=== PATIENT | male | born 1965 | race Caucasian/White ===

== ENCOUNTER 2021-09-28 17:06 | Emergency (ER) | payer SELFPAY ==
--- NOTE | 2021-09-28 17:10 | CTR_ITS ---
PROCEDURE INFORMATION: Exam: CT Abdomen And Pelvis With Contrast Exam date and time: 09/28/2021 5:10 PM Age: 56 years old Clinical indication: Injury or trauma; Other: Open wound to left groin; Wound, open; Foreign body involvement not specified; Lower; Additional info: Open chainsaw injury to pelvis area TECHNIQUE: Imaging protocol: Computed tomography of the abdomen and pelvis with contrast. Radiation optimization: All CT scans at this facility use at least one of these dose optimization techniques: automated exposure control; mA and/or kV adjustment per patient size (includes targeted exams where dose is matched to clinical indication); or iterative reconstruction. Contrast material: OMNI 300; Contrast volume: 95 ml; Contrast route: INTRAVENOUS (IV); COMPARISON: No relevant prior studies available. RADIATION DOSE METRICS: Total DLP (mGy-cm): 2130.06 FINDINGS: Liver: Hepatic steatosis. Gallbladder and bile ducts: Cholelithiasis. Pancreas: Normal. No ductal dilation. Spleen: Normal. No splenomegaly. Adrenal glands: Normal. No mass. Kidneys and ureters: Normal. No hydronephrosis. Stomach and bowel: Unremarkable. No obstruction. No mucosal thickening. Appendix: No evidence of appendicitis. Intraperitoneal space: Unremarkable. No free air. No significant fluid collection. Vasculature: Unremarkable. No abdominal aortic aneurysm. Lymph nodes: Upper abdominal mesentery appears somewhat edematous with several subcentimeter prominent lymph nodes suggestive of a chronic inflammatory process such as sclerosing mesenteritis. Urinary bladder: Unremarkable as visualized. Reproductive: Unremarkable as visualized. Bones/joints: Unremarkable. No acute fracture. Soft tissues: Left inguinal open wound seen with some subcutaneous edema and subcutaneous air without focal fluid collection to indicate an abscess. CT/CT abdomen pelvis w con* [id number] IMPRESSION: 1. Left inguinal open wound seen with some subcutaneous edema and subcutaneous air without focal fluid collection to indicate an abscess. 2. Hepatic steatosis. 3. Cholelithiasis. 4. Upper abdominal mesentery appears somewhat edematous with several subcentimeter prominent lymph nodes suggestive of a chronic inflammatory process such as sclerosing mesenteritis. Radiation Dose CTDIVOL = (mGy): DLP = 2130.06 (mGy-cm)
[2021-09-28 17:12] VITALS: BP 163/99; PULSE 92; RESP 16; TEMP 36.7; O2SAT 99; BMI 31.6
--- NOTE | 2021-09-28 17:14 | W.ED.TRAUMA ---
HPI - Trauma General: Chief Complaint: Wound/Laceration Stated Complaint: CHAINSAW TO GROIN Time Seen by Provider: 09/28/21 17:13 History of Present Illness: HPI narrative: Mr. Nina is a 56-year-old gentleman without reported past medical history presents to the emergency department due to chainsaw injury. 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 He had the chainsaw kicked back and cut his groin. He had bleeding at that time however it is unclear if any of it was pulsatile, it sounds more like large volume venous bleeding which improved with direct pressure. He was driven to the emergency department. Apparently prior to arrival he called or someone called for him telling us that he was coming however he adamantly declined ambulance. Law enforcement dispatch was notified. Moderate intensity pain worse with palpation. No distal numbness or tingling. History is otherwise limited by acuity of condition/trauma. Review of Systems General: Reports: Other (Acuity of condition requiring emergent evaluation and management.) Physical Exam Narrative: EXAM NARRATIVE: GENERAL/CONSTITUTIONAL - well-appearing. Anxious Eyes - PERRL, no conjunctival injection ENMT - Atraumatic external nose and ears. NECK - supple. trachea midline CARDIOVASCULAR - regular rate and rhythm. Normal peripheral pulses. Normal central pulses. RESPIRATORY - clear to auscultation bilaterally. ABDOMEN/GI/ - nontender, nondistended. There is an acute traumatic injury present. Just superior to the left groin there is a large laceration/tissue defect primarily involving fatty layers. No active hemorrhage present. Small abrasion superior to laceration. The laceration is lateral to the penis however tracks inferiorly, scrotum appears intact. Left hemiscrotum is empty and within the wound bed there appears to be the left testicle. Cremasteric reflex results in elevation of this wound bed mass. Area covered with sterile dressing. MSK - Extremities without obvious deformity or tenderness to palpation SKIN - Warm, Dry NEURO - alert and appropriately oriented. strength and sensation intact. Moves all extremities equally. Course ED course: - Patient was seen and evaluated by me and Dr Fisher at bedside - Patient placed on cardiac monitors, IV access obtained - Initial evaluation notable for ABCs intact. Head to toe examination reveals isolated chainsaw injury to the left groin without active hemorrhage. Suspected inguinal canal injury. Distal CMS intact. - Analgesia, Tdap, antibiotics given. - No acute intervention regarding lab abnormalities at this time. CT without evidence of other intra abdominal injury. - Given that we do not have urology on-call or a trauma service patient requires transfer emergently. - Patient accepted to hospital in [place] for trauma neurology evaluation. - Initially planned for transport by air however the patient adamantly declined air transport due to cost. I explained the reason for recommendation of air transport and risks of delaying care by ground transport including infection, more complex surgical repairs, possible loss of testicle, or other unforeseen circumstances. I feel that the patient has capacity to make medical decisions at this time and declines air transport in favor of ground transport. Patient will be transported by EMS via ground. - Patient left emergency department with ground EMS and satisfactory condition. Vital Signs: Vital signs: Vital Signs Temperature 98.0 F 09/28/21 17:12 Pulse Rate 92 09/28/21 17:12 Respiratory Rate 16 09/28/21 17:52 Blood Pressure 163/99 09/28/21 17:12 Pulse Oximetry 964 H 09/28/21 17:52 MDM - Trauma Medical Records: Attestation: I reviewed the patient's medical records. Lab Data: Attestation: I reviewed the patient's lab results. Labs: Lab Results 09/28/21 09/28/21 17:15 17:15 WBC 5.7 10^3/uL 10^3/ uL (4.0-10.0) RBC 4.40 10^6/uL 10^6 /uL (4.1-5.3) Hgb 14.4 g/dL g/dL (11.7-16.6) Hct 42.1 % % (42.0-52.0) MCV 95.7 fl H fl (80-94) MCH 32.7 pg pg (28.0-34.0) MCHC 34.2 g/dL g/dL (30.0-36.0) RDW 12.4 % % (12.1-15.1) Plt Count 232 10^3/cmm 10^3 /cmm (130-400) MPV 9.1 fL fL (7.4-10.4) Neut % (Auto) 65.8 % % Lymph % (Auto) 24.5 % % [place] % (Auto) 7.0 % % Eos % (Auto) 1.9 % % Baso % (Auto) 0.5 % % Neut # (Auto) 3.76 10^3/uL 10^3 /uL (1.8-7.7) Lymph # (Auto) 1.4 10^3/uL 10^3/ uL (0.8-4.8) [place] # (Auto) 0.4 10^3/uL 10^3/ uL (0.2-0.9) Eos # (Auto) 0.1 10^3/uL 10^3/ uL (0.0-0.8) Baso # (Auto) 0.0 10^3/uL 10^3/ uL (0.0-0.1) Nucleated RBC % (a uto) 0 % % Nucleated RBCs # 0.0 /100WBC /100W BC Sodium 144 mmol/L mmol/L (136-145) Potassium 3.8 mmol/L mmol/L (3.5-5.1) Chloride 108 mmol/L H mmol /L (98-107) Carbon Dioxide 19 mmol/L L mmol/ L (22-29) Anion Gap 20.8 H (5-19) BUN 25 mg/dL H mg/dL (6-20) Creatinine 1.3 mg/dL H mg/dL (0.7-1.2) GFR Calculation 57.3 mL/min L mL/ min (90-130) Glucose 87 mg/dL mg/dL (65-115) Calculated Osmolal ity 302 mOsm/kg H mOs m/kg (285-295) Calcium 8.7 mg/dL mg/dL (8.5-10.5) Total Bilirubin 0.7 mg/dL mg/dL (0.15-1.2) AST 19 U/L U/L (0-40) ALT 18 U/L U/L (0-41) Alkaline Phosphata se 69 IU/L IU/L (40-130) Total Protein 7.3 g/dL g/dL (6.6-8.7) Albumin 4.4 g/dL g/dL (3.5-5.2) Globulin 2.9 g/dL g/dL (1.3-4.6) Ethyl Alcohol 152 mg/dL H mg/dL (0-10) EKG Data^: EKG 1: Attestation: I personally reviewed and interpreted this EKG as follows: EKG interpretation date: 09/28/21 EKG interpretation time: 17:55 Interpretation: Twelve-lead EKG shows a regular rhythm at a rate of 89. SC interval 204, QRS duration 108, QTc 425. Left axis deviation. Interpretation: Sinus rhythm. First-degree AV block. Abnormal EKG which is likely secondary to left anterior fascicular block however no comparison is available. I did not interpret EKG until after patient had left. No reported history of chest pain recently. I contacted receiving facility's emergency department, as part of trauma protocol he will have repeat EKG at that facility. Discharge Plan Discharge Patient Disposition: Transfer to ED Clinical Impression: Trauma, Contact with chainsaw as cause of accidental injury, Laceration of groin, Testicular injury, Alcohol intoxication Coding Level of Care Code ED Improvement Specialist for Lawrence Barraza
[2021-09-28 17:30] LABS: Basophils % 0.5 %; Eosinophils # 0.1 10^3/uL (0.0-0.8); Eosinophils % 1.9 %; Hematocrit 42.1 % (42.0-52.0); Hemoglobin 14.4 g/dL (11.7-16.6); Lymphocytes # 1.4 10^3/uL (0.8-4.8); Lymphocytes % 24.5 %; Mean Corpuscular HGB Conc 34.2 g/dL (30.0-36.0); Mean Corpuscular Hemoglobin 32.7 pg (28.0-34.0); Mean Corpuscular Volume 95.7 fl (80-94); Mean Platelet Volume 9.1 fL (7.4-10.4); Monocytes # 0.4 10^3/uL (0.2-0.9); Neutrophils # 3.76 10^3/uL (1.8-7.7); Neutrophils % 65.8 %; Nucleated Red Blood Cells % 0 %; Platelet Count 232 10^3/cmm (130-400); Red Cell Distribution Width 12.4 % (12.1-15.1); White Blood Count 5.7 10^3/uL (4.0-10.0)
[2021-09-28] MEDS: iohexol 300 mg/mL 100 mL Btl IV (17:33)
[2021-09-28 17:38] LABS: Alanine Aminotransferase 18 U/L (0-41); Albumin Level 4.4 g/dL (3.5-5.2); Alcohol Level 152 mg/dL (0-10); Alkaline Phosphatase 69 IU/L (40-130); Anion Gap 20.8 (5-19); Aspartate Amino Transferase 19 U/L (0-40); Blood Urea Nitrogen 25 mg/dL (6-20); Calcium 8.7 mg/dL (8.5-10.5); Carbon Dioxide 19 mmol/L (22-29); Chloride 108 mmol/L (98-107); Globulin 2.9 g/dL (1.3-4.6); Glomerular Filtration Rate 57.3 mL/min (90-130); Glucose 87 mg/dL (65-115); Osmolality Calculated 302 mOsm/kg (285-295); Potassium 3.8 mmol/L (3.5-5.1); Sodium 144 mmol/L (136-145); Total Bilirubin 0.7 mg/dL (0.15-1.2); Total Protein 7.3 g/dL (6.6-8.7)
[2021-09-28] MEDS: ceFAZolin 1,000 MG in sodium chloride 0.9% (plus) 50 ML 100 MG IV (17:50)
[2021-09-28 17:52] VITALS: RESP 16; O2SAT 964
[2021-09-28] MEDS: fentaNYL 50 mcg/mL INJ 2mL 100 MCG IVP (17:52)
[2021-09-28] MEDS: tetanus-dipt-pertussis 0.5 mL SDV IM (17:54)
[2021-09-28] MEDS: sodium chloride 0.9% 1,000 ML 999 ML IV (17:56)
--- NOTE | 2021-09-28 18:21 | PC.NURSE ---
Pt arrvied via POV from home with a friend and sister. Pt states he was out cutting wood with a chainsaw when the chainsaw kicked back and the blade caught him in the left groin area, causing a deep laceration approximately 2.5inch x 5 inch. Bleeding controlled on arrival by pt and family. Pt A/O x4, vs taken. Pt brought to room from EMS bay. Pt placed on monitor, pt states he has very little pain at this time, pt appears to be diaphoretic once in room, states the adrenaline is wearing off .
== END 2021-09-28 18:40 ==
PROVIDERS: Emergency Medicine; Emergency Provider Emergency Medicine
DX: S31.114A Laceration without foreign body of abdominal wall, left lower quadrant without penetration into peritoneal cavity, initial encounter (principal); S39.94XA Unspecified injury of external genitals, initial encounter; F10.129 Alcohol abuse with intoxication, unspecified; Y90.6 Blood alcohol level of 120-199 mg/100 ml; W29.3XXA Contact with powered garden and outdoor hand tools and machinery, initial encounter; Z23 Encounter for immunization
CPT/HCPCS: 74177; 80053; 80307; 85025; 90471; 90715; 96365; 96375; 99284; J0690; J3010; J7030; Q9967

== ENCOUNTER 2023-10-14 18:37 | Inpatient (IN) | payer SELFPAY ==
[2023-10-14 18:44] VITALS: BP 221/125; PULSE 97; RESP 18; TEMP 36.7; O2SAT 97; BMI 34.3
--- NOTE | 2023-10-14 18:50 | XRR_ITS ---
PROCEDURE INFORMATION: Exam: XR Chest Exam date and time: 10/14/2023 6:57 PM Age: 58 years old Clinical indication: Pain; Chest pressure; Additional info: Cp TECHNIQUE: Imaging protocol: Radiologic exam of the chest. Views: 1 view. COMPARISON: CT abdomen pelvis w con* [id number] 09/28/2021 5:30 PM FINDINGS: Lungs: Unremarkable. No consolidation. Pleural spaces: Small right pleural effusion. Heart/Mediastinum: Cardiomegaly. Bones/joints: Unremarkable. XR/XR chest 1V portable [id number] IMPRESSION: 1. Small right pleural effusion. 2. Cardiomegaly.
--- NOTE | 2023-10-14 18:50 | ECG_ITS ---
[facility] Test Date: 2023-10-14 Pat Name: Donnie Nina Department: Room: Gender: Male Conductor Sleeping Car: : 1965 Requested By: Gigi Gibbs Order Number: [id number] Reading MD: Benny Pabon M.D. Measurements Intervals [place] Rate: 90 P: 37 GA: 213 QRS: -68 QRSD: 118 T: 116 QT: 386 QTc: 474 Interpretive Statements SINUS RHYTHM WITH FIRST DEGREE AV BLOCK INCOMPLETE RIGHT BUNDLE BRANCH BLOCK [90+ ms QRS DURATION, TERMINAL R IN V1/V2, 40+ ms S IN I/aVL/V4/V5/V6] LEFT ANTERIOR FASCICULAR BLOCK [QRS AXIS <= -45, QR IN I, RS IN II] SEPTAL MYOCARDIAL INFARCTION , PROBABLY OLD [40+ ms Q WAVE IN V1/V2] LATERAL MYOCARDIAL INFARCTION No previous ECG available for comparison Electronically Signed On 10-15-2023 14:38:18 MECHANIC'S ASSISTANT by Benny Pabon M.D. [id number]
[2023-10-14] MEDS: hyDRALAzine 20 mg/mL INJ 1 mL 10 MG IVP (19:29)
[2023-10-14] MEDS: aspirin 81 mg Chew Tablet 324 MG PO (19:29)
[2023-10-14] MEDS: amlodipine 5 mg Tablet PO (19:29)
[2023-10-14 19:37] LABS: Basophils # 0.1 10^3/uL (0.0-0.1); Basophils % 0.7 %; Eosinophils # 0.2 10^3/uL (0.0-0.8); Eosinophils % 2.2 %; Hematocrit 38.7 % (37-53); Lymphocytes # 0.9 10^3/uL (0.8-4.8); Lymphocytes % 12.1 %; Mean Corpuscular HGB Conc 33.1 g/dL (30-55); Mean Corpuscular Hemoglobin 30.5 pg (27-33); Mean Corpuscular Volume 92.4 fl (82-101); Mean Platelet Volume 8.5 fL (7.4-10.4); Monocytes # 0.4 10^3/uL (0.2-0.9); Monocytes % 4.6 %; Nucleated Red Blood Cells % 0 %; Platelet Count 269 10^3/cmm (157-399); Red Blood Count 4.19 10^6/uL (3.85-5.65); Red Cell Distribution Width 12.5 % (12.1-15.1); White Blood Count 7.62 10^3/uL (3.29-11.43)
[2023-10-14 19:50] LABS: INR 1.06 (0.8-1.2)
[2023-10-14 19:51] LABS: Partial Thromboplastin Time 31.3 SECONDS (23.9-36.7)
[2023-10-14 19:57] LABS: Troponin(5th) Baseline 45 ng/L (0-15)
--- NOTE | 2023-10-14 20:02 | ED_ITS ---
HPI - SOB/Dyspnea 2 General: Chief Complaint: Shortness of Breath/Dyspnea Stated Complaint: high bp,sob Time Seen by Provider: 10/14/23 18:59 History of Present Illness: HPI Narrative: 58-year-old male presents emerged part w ith complaints of feeling like he is more short of breath on exertion. He states he also has uncontrolled hypertension and states that he used to take antihypertensive medication but switched his primary care provider and has not taken them for a long time. He also complains of generalized vague headache. He states he did do methamphetamine earlier today he denies chest pain at present. He denies dizziness or changes in vision. He states he does drink alcohol but does not smoke cigarettes. He states intermittently for the previous 2 months he has had significant swelling to his lower extremities and he does have trace bilateral lower extremity edema today. Associated symptoms: Deny chest pain or palpitations Review of Systems 2 General: Reports: 10 or more systems reviewed and unremarkable except in HPI and below Card: Reports: edema; Denies: chest pain, palpitations or irregular heart rhythm Resp: Reports: dyspnea Psych: Reports: other (Methamphetamine abuse) Physical Exam 2 Narrative: EXAM NARRATIVE: Constitutional: the patient appears well nourished and with normal development. Vital signs reviewed as documented. HENMT: Normocephalic, atraumatic. Extermal ears with normal appearance without drainage. Nose without drainage, normal appearance. Mucus membranes moist. Neck is supple, No jugular venous distension, trachea is midline, no appreciable carotid bruits. No lymphadenopathy. No meningeal signs. Flexion, extension and lateral rotation is without pain. Eyes: Pupils are equal, round, reactive to light and accommodation. No scleral icterus. Extra-ocular movement are intact. Thorax is symmetrical and with equal rise and fall with respirations. Resp: Lungs are clear to auscultation. No wheezes, rales, crackles or ronchi at present. Cardio: Sinus tachycardia.. Positive S1, S2. No appreciable murmurs, rubs or gallops. Trace bilateral lower extremity edema GI: Abdominal exam reveals normal bowel sounds to all quadrants. No organomegaly. No obvious palpable masses noted. No hepatomegally appreciated. Soft, nontender to palpation. Extremity: Extremities are with trace bilateral lower extremity edema and both femoral and pedal pulses are 2+ and equal bilaterally. Moves all extremities well, sensation in all extremities. Neuro: Alert and oriented x4, person, place, time and situation. Cranial nerves II through XII are grossly intact, there is no focal neurological deficits that I can appreciate at present. Motor strength in the upper and lower extremities are equal and bilateral 5/5. Psych: Cooperative, calm, normal thought process, appropriate judgment. Skin: No lesions, rashes. No gross abnormalities noted. Back: Symmetrical, no obvious deformity, No CVA tenderness Course 2 Vital Signs: Vital signs: Vital Signs Temperature 98.0 F 10/14/23 18:44 Pulse Rate 96 10/14/23 21:32 Respiratory Rate 16 10/14/23 21:32 Blood Pressure 176/90 10/14/23 21:32 Pulse Oximetry 97 10/14/23 21:32 Oxygen Delivery Me thod Room Air 10/14/23 18:44 MDM - SOB/Dyspnea Medical Decision Making Physical exam completed and documented, I will obtain serial cardiac enzymes, serial twelve-lead EKGs, chest x-ray, CBC, CMP, urinalysis, B-type natriuretic peptide, PT/PTT/INR, and a chest x-ray. I will provide a nitroglycerin drip for hypertensive emergency and reevaluate accordingly. I have reviewed any pervious and pertinent medical records for assist in obtaining beneficial medical information to improved the care and treatment of the patient. I will consult the hospital physician for admission for additional evaluation treatment and care given the patient's hypertensive emergency and acute renal injury. Medical Records I reviewed the patient's medical records. Lab Data I reviewed the patient's lab results. 10/14/23 19:34 10/14/23 19:34 Labs/Radiology: Radiology Impressions Chest X-Ray 10/14/23 18:50 IMPRESSION: 1. Small right pleural effusion. 2. Cardiomegaly. Laboratory Results WBC 7.62 10^3/uL (3.29-11.43) 10/14/23 19:34 RBC 4.19 10^6/uL (3.85-5.65) 10/14/23 19:34 Hgb 12.80 g/dL (11.27-16.99) 10/14/23 19:34 Hct 38.7 % (37-53) 10/14/23 19:34 MCV 92.4 fl (82-101) 10/14/23 19:34 MCH 30.5 pg (27-33) 10/14/23 19:34 MCHC 33.1 g/dL (30-55) 10/14/23 19:34 RDW 12.5 % (12.1-15.1) 10/14/23 19:34 Plt Count 269 10^3/cmm (157-399) 10/14/23 19:34 MPV 8.5 fL (7.4-10.4) 10/14/23 19:34 Neut % (Auto) 80.0 % 10/14/23 19:34 Lymph % (Auto) 12.1 % 10/14/23 19:34 [place] % (Auto) 4.6 % 10/14/23 19:34 Eos % (Auto) 2.2 % 10/14/23 19:34 Baso % (Auto) 0.7 % 10/14/23 19:34 Neut # (Auto) 6.10 10^3/uL (1.8-7.7) 10/14/23 19:34 Lymph # (Auto) 0.9 10^3/uL (0.8-4.8) 10/14/23 19:34 [place] # (Auto) 0.4 10^3/uL (0.2-0.9) 10/14/23 19:34 Eos # (Auto) 0.2 10^3/uL (0.0-0.8) 10/14/23 19:34 Baso # (Auto) 0.1 10^3/uL (0.0-0.1) 10/14/23 19:34 Nucleated RBC % (auto) 0 % 10/14/23 19:34 Nucleated RBCs # 0.0 /100WBC 10/14/23 19:34 PT 14.10 SECONDS (12.1-14.9) 10/14/23 19:34 INR 1.06 (0.8-1.2) 10/14/23 19:34 APTT 31.3 SECONDS (23.9-36.7) 10/14/23 19:34 Sodium 136 mmol/L (136-145) 10/14/23 19:34 Potassium 4.0 mmol/L (3.5-5.1) 10/14/23 19:34 Chloride 102 mmol/L (98-107) 10/14/23 19:34 Carbon Dioxide 21 mmol/L (22-29) L 10/14/23 19:34 Anion Gap 17.0 (5-19) 10/14/23 19:34 BUN 23 mg/dL (6-20) H 10/14/23 19:34 Creatinine 2.0 mg/dL (0.7-1.2) H 10/14/23 19:34 GFR Calculation 34.6 mL/min (90-130) L 10/14/23 19:34 Glucose 98 mg/dL (65-115) 10/14/23 19:34 Calculated Osmolality 286 mOsm/kg (285-295) 10/14/23 19:34 Calcium 8.8 mg/dL (8.5-10.5) 10/14/23 19:34 Total Bilirubin 1.1 mg/dL (0.15-1.2) 10/14/23 19:34 AST 30 U/L (0-40) 10/14/23 19:34 ALT 32 U/L (0-41) 10/14/23 19:34 Alkaline Phosphatase 117 U/L (40-130) 10/14/23 19:34 Troponin T Baseline 45 ng/L (0-15) H 10/14/23 19:34 Troponin T 120 Minute 45.57 ng/L (0-15) H 10/14/23 21:38 Delta Troponin T 0.57 ABS# (0-10) 10/14/23 21:38 NT-Pro-B Natriuret Pep 1951 pg/mL (0-125) H 10/14/23 19:34 Total Protein 7.1 g/dL (6.6-8.7) 10/14/23 19:34 Albumin 4.0 g/dL (3.5-5.2) 10/14/23 19:34 Globulin 3.1 g/dL (1.3-4.6) 10/14/23 19:34 Urine Opiates Screen Negative ng/mL (Negative) 10/14/23 21:38 Ur Barbiturates Screen Negative ng/mL (Negative) 10/14/23 21:38 Ur Phencyclidine Scrn Negative ng/mL (Negative) 10/14/23 21:38 Ur Amphetamines Screen Positive ng/mL (Negative) H 10/14/23 21:38 U Benzodiazepines Scrn Negative ng/mL (Negative) 10/14/23 21:38 Urine Cocaine Screen Negative ng/mL (Negative) 10/14/23 21:38 U Marijuana (THC) Screen Negative ng/mL (Negative) 10/14/23 21:38 All radiology interpretation(s) finalized by discharge EKG Data EKG 1: Interpretation: Twelve-lead EKG obtained at 1856 and reviewed at 1900 demonstrates sinus rhythm with first-degree AV block, incomplete right bundle branch block and a left anterior fascicular block. I am concerned for subendocardial injury and will obtain cardiac enzymes. The ventricular rate was 90 bpm, NE interval was prolonged at 213 QRS duration is 118 QT 386 and QTc 434. Critical Care Time 2 Critical Care Time: Critical Care Time: Yes Total Critical Care Time: 65 Attestation: This case had a high probability of a clinically significant, sudden, or life threatening deterioration of this patient's condition which required my full and direct attention, intervention and personal management. Discharge Plan Discharge Admit Provider: Jhonny Inman Condition: Stable Prescriptions: No Action No Known Home Medications Coding Level of Care Code ED Radiation Control Specialist for Dimasg Madi
[2023-10-14 20:07] LABS: Alanine Aminotransferase 32 U/L (0-41); Alkaline Phosphatase 117 U/L (40-130); Aspartate Amino Transferase 30 U/L (0-40); Blood Urea Nitrogen 23 mg/dL (6-20); Calcium 8.8 mg/dL (8.5-10.5); Carbon Dioxide 21 mmol/L (22-29); Chloride 102 mmol/L (98-107); Globulin 3.1 g/dL (1.3-4.6); Glomerular Filtration Rate 34.6 mL/min (90-130); Glucose 98 mg/dL (65-115); NT Pro B Type Natriuretic Pept 1951 pg/mL (0-125); Osmolality Calculated 286 mOsm/kg (285-295); Sodium 136 mmol/L (136-145); Total Bilirubin 1.1 mg/dL (0.15-1.2); Total Protein 7.1 g/dL (6.6-8.7)
[2023-10-14] MEDS: hyDRALAzine 20 mg/mL INJ 1 mL IVP (20:24)
[2023-10-14 21:23] VITALS: BP 183/90; PULSE 97; RESP 16; O2SAT 91
[2023-10-14] MEDS: FUROsemide 10 mg/mL SDV 4mL 40 MG IVP (21:28)
[2023-10-14 21:32] VITALS: BP 176/90; PULSE 96; RESP 16; O2SAT 97
[2023-10-14 21:59] LABS: Amphetamines Screen Urine Positive (Negative); Barbiturates Screen Urine Negative (Negative); Benzodiazepines Screen Urine Negative (Negative); Cocaine Screen Urine Negative (Negative); Opiate Screen Urine Negative (Negative); PCP Screen Urine Negative (Negative); THC Screen Urine Negative (Negative)
[2023-10-14 22:05] LABS: Troponin 5 2HR 45.57 ng/L (0-15); Troponin 5 2HR Delta 0.57 ABS# (0-10)
--- NOTE | 2023-10-14 22:46 | P.HP_ITS ---
Providers/Chief Complaint 2 Chief Complaint: high bp,sob History of Present Illness Donnie Nina is a 58 year old male with no significant past medical history, active smoker, uses methamphetamine, drinks alcohol heavily, presented with chief overnight shortness of breath. Patient stating that he woke up with shortness of breath and then he smoked methamphetamine which aggravated his symptoms that prompted his visit to the ER. He did not experience any chest pain until his blood pressure and heart rate was high in the ER which improved when blood pressure came down. At the time of my evaluation he is not complaining active chest pain he is on nitroglycerin drip blood pressure 190/90 mmHg, no active chest pain or shortness of breath, patient has received Lasix, amlodipine, aspirin, hydralazine, currently on lowest dose of nitroglycerin, I requested echo, TSH, Patient does not have any history of coronary disease diabetes, hypothyroidism, he does not take any medications. Patient is stating that his 1 bottle of vodka over the last 3 days Review of Systems 2 Const: Denies: fever(s) Eyes: Denies: change in vision ENMT: Denies: throat pain Card: Denies: chest pain Resp: Reports: dyspnea GI: Denies: abdominal pain : Denies: flank pain Musc: Denies: neck pain Medications/Allergies Home Medications Medication Instructions Recorded Confirmed Last Taken Type No Known Home Medications 10/14/23 10/14/23 Unknown History Allergies Allergy/AdvReac Type Severity Reaction Status Date / Time No Known Allergies Allergy Verified 10/14/23 18:43 PFSH Acute 2 PFSH: Medical History (Updated 10/14/23 @ 23:34 by Jhonny Inman MD) No pertinent past medical history Surgical History (Updated 10/14/23 @ 23:34 by Jhonny Inman MD) No pertinent past surgical history Vitals/I&O/Wt Last Vital Signs Temp 98.0 F 10/14/23 18:44 Pulse 96 10/14/23 21:32 Resp 16 10/14/23 21:32 BP 176/90 10/14/23 21:32 Pulse Ox 97 10/14/23 21:32 O2 Del Method Room Air 10/14/23 18:44 Weight last 48 hrs Weight 114.759 kg Physical Exam 2 Narrative: No active signs of heart failure Awake and alert GCS 15 Currently on room air Hypertensive S1, S2 Nonfocal neuroexam Pleasant and cooperative Dry skin Data 10/14/23 19:34 10/14/23 19:34 A&P Assessment and plan (1) Hypertensive urgency: (2) Methamphetamine abuse: Plan Polysubstance abuse Methamphetamine positive Hypertensive urgency Start nitroglycerin drip I have asked the nurse to monitor blood pressure every 30 minutes and turn off nitroglycerin once his blood pressure systolic is below 140 mmHg which should not be decreasing MAP more than 25% in next 6 to 8 hours Check TSH, Patient is endorsing daily use of alcohol, last drink was a few hours before his arrival in the ER, I will put him on CIWA protocol New onset congestive heart failure with high BNP we will request echo he has received Lasix in the ER Acute on chronic kidney disease likely cardiorenal Anticipate improvement with Lasix Full code Cardiac diet DVT prophylaxis added Attestations 2 Medical Necessity Statement*: More than 2 midnights anticipated for management evaluation of new onset heart failure, hypertensive urgency, polysubstance abuse Diagnoses Hypertensive urgency I16.0 Methamphetamine abuse F15.10
--- NOTE | 2023-10-14 23:21 | ECG_ITS ---
[facility] Test Date: 2023-10-14 Pat Name: Donnie Nina Department: Room: EDIP Gender: Male Marriage Counselor: : 1965 Requested By: Gigi Gibbs Order Number: [id number] Ying MD: Benny Pabon M.D. Measurements Intervals [place] Rate: 94 P: 59 FL: 203 QRS: -61 QRSD: 114 T: 96 QT: 385 QTc: 482 Interpretive Statements SINUS RHYTHM POSSIBLE LEFT ATRIAL ENLARGEMENT [-0.1mV P-WAVE IN V1/V2] INCOMPLETE RIGHT BUNDLE BRANCH BLOCK [90+ ms QRS DURATION, TERMINAL R IN V1/V2, 40+ ms S IN I/aVL/V4/V5/V6] LEFT ANTERIOR FASCICULAR BLOCK [QRS AXIS <= -45, QR IN I, RS IN II] SEPTAL MYOCARDIAL INFARCTION , OF INDETERMINATE AGE [40+ ms Q WAVE IN V1/V2] MODERATE T-WAVE ABNORMALITY, CONSIDER LATERAL ISCHEMIA [-0.1+ mV T-WAVE IN I/aVL/V5/V6] Compared to ECG 10/14/2023 18:56:32 T-wave abnormality now present Possible ischemia now present First degree AV block no longer present Myocardial infarct finding still present Electronically Signed On 10-15-2023 14:41:13 EASEMENT MAN by Benny Pabon M.D. [id number]
[2023-10-14 23:30] VITALS: BP 190/95; PULSE 95; RESP 16; O2SAT 97
[2023-10-14] MEDS: nitroglycerin drip 50 MG/250 ML PREMIX IV (23:30)
[2023-10-15] VITALS (11 sets, daily range): BP systolic 141–181; BP diastolic 65–108; PULSE 88–107; RESP 16–19; TEMP 36.8–37.3; O2SAT 76–97; BMI 31.6
[2023-10-15 00:06] LABS: Thyroid Stimulating Hormone 3.96 uIU/mL (0.27-4.20)
--- NOTE | 2023-10-15 00:53 | ECG_ITS ---
[facility] Test Date: 2023-10-15 Pat Name: Donnie Nina Department: Room: ED Gender: Male Calender Wind Up Tender: : 1965 Requested By: Gigi Gibbs Order Number: [id number] Ying MD: Benny Pabon M.D. Measurements Intervals [place] Rate: 93 P: 59 [place]: 198 QRS: -66 QRSD: 112 T: 93 QT: 392 QTc: 489 Interpretive Statements SINUS RHYTHM POSSIBLE LEFT ATRIAL ENLARGEMENT [-0.1mV P-WAVE IN V1/V2] INCOMPLETE RIGHT BUNDLE BRANCH BLOCK [90+ ms QRS DURATION, TERMINAL R IN V1/V2, 40+ ms S IN I/aVL/V4/V5/V6] LEFT ANTERIOR FASCICULAR BLOCK [QRS AXIS <= -45, QR IN I, RS IN II] ABNORMAL QRS-T ANGLE [QRS-T AXIS DIFFERENCE > 60] Compared to ECG 10/14/2023 23:21:31 Myocardial infarct finding no longer present T-wave abnormality no longer present Possible ischemia no longer present Electronically Signed On 10-15-2023 14:41:44 MIRROR MACHINE FEEDER by Benny Pabon M.D. [id number]
[2023-10-15 01:05] LABS: Troponin 5 6HR 46.69 ng/L (0-15); Troponin 5 6HR Delta 1.69 ng/L (0-12)
[2023-10-15] MEDS: heparin 5,000 unit/mL INJ 1 mL 5000 UNIT SUBCUT ×3 (01:19→23:19)
[2023-10-15 03:53] LABS: Basophils % 0.6 %; Eosinophils # 0.2 10^3/uL (0.0-0.8); Eosinophils % 2.1 %; Lymphocytes # 0.7 10^3/uL (0.8-4.8); Lymphocytes % 9.1 %; Mean Corpuscular HGB Conc 33.9 g/dL (30-55); Mean Corpuscular Hemoglobin 30.8 pg (27-33); Mean Corpuscular Volume 90.7 fl (82-101); Mean Platelet Volume 8.5 fL (7.4-10.4); Monocytes # 0.4 10^3/uL (0.2-0.9); Monocytes % 5.7 %; Neutrophils # 5.89 10^3/uL (1.8-7.7); Neutrophils % 82.2 %; Nucleated Red Blood Cells % 0 %; Platelet Count 274 10^3/cmm (157-399); Red Blood Count 4.52 10^6/uL (3.85-5.65); Red Cell Distribution Width 12.6 % (12.1-15.1); White Blood Count 7.16 10^3/uL (3.29-11.43)
[2023-10-15 04:09] LABS: Anion Gap 16.1 (5-19); Blood Urea Nitrogen 22 mg/dL (6-20); C Reactive Protein 46.7 mg/L (0.0-4.9); Calcium 9.5 mg/dL (8.5-10.5); Carbon Dioxide 24 mmol/L (22-29); Chloride 99 mmol/L (98-107); Glomerular Filtration Rate 34.6 mL/min (90-130); Glucose 104 mg/dL (65-115); Magnesium 2.2 mg/dL (1.7-2.3); Osmolality Calculated 284 mOsm/kg (285-295); Potassium 4.1 mmol/L (3.5-5.1); Sodium 135 mmol/L (136-145)
--- NOTE | 2023-10-15 07:22 | PC.PHAR ---
pt states he takes no prescription medication or otc meds-no med show up on ext med history
--- NOTE | 2023-10-15 09:04 | PC.CHAP ---
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 [] Patient/Family/Request visit [] Outpatient visit [] Follow-up visit [] Physician referral [] Code/Alert [] Routine visit [] Staff referral [] Actively dying [] Patient sleeping [] Family support [] [] Out of room [] Palliative care [] [x] Receiving care in room [] Pre-surgical visit [] Trauma [] Long length of stay [] ICU visit [] Other: Relational/Emotional Strength [] Patient feels connected with others/family/visitors/staff [] Distress [] Loneliness/isolation [] Abandonment Spirituality of Patient [] Person of [place]ette [] Attends Mormonism of their [place] [] Believes in Prayer [] Reads Bible or Buddhism materials [] There are Spiritual issues to be addressed 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 [] Prayer [] Active listening [] Non-anxious presence [] Spiritual/emotional support [] Crisis/trauma care [] Spiritual counseling [] Bereavement support [] Provided bereavement packet [] Provided Bible/devotional materials [] Provided toy/stuffed animal, coloring book to patient or family member [] Provided Communion [] Anointing/[place] [] Salvation [] Completed spiritual assessment [] Other: Impact on Illness or Injury [] Angry [] Fearful [] Anxious [] Often cries [] Exhaustion [] Unable to work [] Unable to attend anabaptist [] Unable to walk/stand [] Unable to read [] Unable to drive [] Unable to eat/drink [] Unable to sleep [] Unable to be with family [] Patient intubated [] Other: Summary Time spent with patient
[2023-10-15] MEDS: multivitamin therapeutic Tablet 1 TAB PO (09:12)
[2023-10-15] MEDS: amlodipine 10 mg Tablet PO (09:12)
[2023-10-15] MEDS: lisinopril 10 mg Tablet PO (09:12)
[2023-10-15] MEDS: FUROsemide 40 mg Tablet PO (09:12)
[2023-10-15] MEDS: thiamine 100 mg Tablet PO (09:12)
[2023-10-15] MEDS: metoprolol tartrate 25 mg Tablet PO (09:13)
[2023-10-15] MEDS: folic acid 1 mg Tablet PO (09:13)
[2023-10-15] MEDS: potassium chloride ER 20 mEq Tablet PO (09:15)
[2023-10-15] MEDS: acetaminophen 500 mg Tablet PO (12:29)
--- NOTE | 2023-10-15 13:06 | P.PN_ITS ---
Subjective 2 Subjective: Seen this morning. Blood pressure still elevated and patient is still on nitro drip. He states he used to be on blood pressure medication in the past however stopped taking it. He uses meth daily however the reason being his bilateral knee pain. 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 He states he does not have a primary care physician either. 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 He does not mind the drug screen daily but it seems it is a hassle to him. He is willing to go back on blood pressure medication and willing to set up with her primary care physician and get a referral to pain clinic to try to get a fresh start. Vitals/I&O/Wt Last Vital Signs Temp 98.0 F 10/14/23 18:44 Pulse 91 10/15/23 08:28 Resp 18 10/15/23 08:28 BP 170/96 10/15/23 07:42 Pulse Ox 97 10/15/23 08:28 O2 Del Method Room Air 10/15/23 08:28 10/14/23 10/15/23 10/15/23 22:59 06:59 14:59 Intake Total 39.575 / 39.575 240 / 240 Balance 39.575 / 39.575 240 / 240 Weight last 48 hrs Weight 117.934 kg Weight 114.759 kg Physical Exam 2 Narrative: No active signs of heart failure Awake and alert GCS 15 Currently on room air Hypertensive S1, S2 Nonfocal neuroexam Pleasant and cooperative Dry skin Data 10/15/23 03:50 10/15/23 03:50 A&P Assessment and plan (1) Hypertensive urgency: (2) Methamphetamine abuse: Plan Polysubstance abuse Methamphetamine positive Hypertensive urgency ?Patient to continue on nitroglycerin drip for now. Once blood pressure systolic less than 160 we will stop the drip. Continue amlodipine 10 mg daily ? Start hydralazine 50 3 times daily - TSH 3.96. Patient is endorsing daily use of alcohol, last drink was a few hours before his arrival in the ER, I will put him on CIWA protocol New onset congestive heart failure with high BNP we will request echo he has received Lasix in the ER. ? Echo is within normal limits. Reviewed results. Most likely this was flash pulmonary edema due to hypertensive urgency. Acute on chronic kidney disease likely cardiorenal Anticipate improvement with Lasix. Creatinine is 2.0. This may be his new baseline from prior. Full code Cardiac diet DVT prophylaxis added Referral for pain clinic and PCP at discharge. Attestations 2 Medical Necessity Statement*: Will require closer monitoring in cardiac stepdown unit today since he is on a nitroglycerin drip. Discharge home once blood pressure better controlled. Diagnoses Hypertensive urgency I16.0 Methamphetamine abuse F15.10
[2023-10-15] MEDS: hyDRALAzine 25 mg Tablet PO ×2 (14:20→20:55)
--- NOTE | 2023-10-15 17:07 | PC.NURSE ---
have been titrating ntg drip down using manual bp cuff,as nihan Kodon does not correlate. bp 156/98;154/92;156/90;150/92
--- NOTE | 2023-10-15 23:32 | USCV_ITS ---
Donnie Nina Age: 58 Gender: M : 1965 Exam Date: 10/15/2023 00:10 Ordering Phys: Jhonny Inman MD Technologist: ZACK [place]am [place] [facility] [place] [facility] [place] Indication: SOB FERNANDEZ Methamphetamine Abuser BP: 190 / 95 HR: 104 Rhythm: Sinus Technical Quality: Suboptimal MEASUREMENTS (Male / Female) Normal Values 2D ECHO LV Diastolic Diameter PLAX 3.2 cm 4.2 - 5.9 / 3.9 - 5.3 cm LV Systolic Diameter PLAX 2.1 cm IVS Diastolic Thickness 1.8 cm 0.6 - 1.0 / 0.6 - 0.9 cm IVS Systolic Thickness 2.5 cm LVPW Diastolic Thickness 1.9 cm 0.6 - 1.0 / 0.6 - 0.9 cm LVPW Systolic Thickness 2.2 cm LVOT Diameter 1.8 cm LV Ejection Fraction 2D Teich 63.7 % LV Ejection Fraction MOD 2C 65.0 % LV Ejection Fraction 2C AL 69.6 % LA Diameter 5.3 cm LA Width 4.2 cm LA Height 7.1 cm RA Width 3.6 cm RA Height 4.7 cm Aorta at Sinotubular Diameter 3.8 cm IVC Diameter 1.8 cm M-MODE Aortic Annulus Diameter 3.6 cm LA Ao Ratio MM 1.4 MV E Point Septal Separation 0.3 cm DOPPLER AV Peak Velocity 177.0 cm/s LVOT Peak Velocity 172.0 cm/s AV Area Cont Eq vti 2.2 cm squared AV Area Cont Eq pk 2.5 cm squared MV Area PHT 4.2 cm squared Mitral E to A Ratio 1.5 MV E' Velocity 78.0 cm/s Mitral E to MV E' Ratio 34.4 Mitral E to LV E' Lateral Ratio 33.6 Mitral E to LV E' Septal Ratio 35.2 TR Peak Velocity 274.0 cm/s TR Peak Gradient 30.0 mmHg TV Peak E Velocity 60.0 cm/s Right Atrial Pressure 5.0 mmHg Pulmonary Artery Systolic Pressu 35.0 mmHg PV Peak Velocity 119.0 cm/s RV Acceleration Time 0.1 s RV Ejection Time 0.4 s RV AcT/ET 0.2 FINDINGS Left Ventricle Normal left ventricular size, systolic function and wall thickness, with no regional wall motion abnormalities. Normal diastolic function. Left ventricular ejection fraction is estimated at 65%. Right Ventricle Normal right ventricular size and systolic function. Normal right ventricular systolic pressure. Right Atrium The right atrium is normal in size. Left Atrium The left atrium is normal in size. Mitral Valve Structurally normal mitral valve. Mild mitral valve regurgitation. Aortic Valve Structurally normal aortic valve without significant sclerosis or stenosis. There is no aortic regurgitation. Tricuspid Valve Pulmonic Valve Pulmonic valve not well visualized. Pericardium Normal pericardium without effusion. Aorta Normal ascending aorta dimension. IVC The inferior vena cava appears normal. CONCLUSIONS Normal left ventricular size, systolic function and wall thickness, with no regional wall motion abnormalities. Normal diastolic function. Left ventricular ejection fraction is estimated at 65%. Structurally normal mitral valve. Mild mitral valve regurgitation. There are no prior echocardiogram studies to compare. Dr. Benny Pabon MD (Electronically Signed) Final Date: 15 October 2023 09:06 S
[2023-10-16 03:18] VITALS: BP 148/96; PULSE 86; RESP 18; TEMP 36.6; O2SAT 94
[2023-10-16 04:36] LABS: Basophils % 0.5 %; Eosinophils # 0.1 10^3/uL (0.0-0.8); Eosinophils % 1.3 %; Hematocrit 44.6 % (37-53); Lymphocytes # 0.9 10^3/uL (0.8-4.8); Lymphocytes % 9.8 %; Mean Corpuscular HGB Conc 33.9 g/dL (30-55); Mean Corpuscular Hemoglobin 30.8 pg (27-33); Mean Platelet Volume 8.7 fL (7.4-10.4); Monocytes # 0.6 10^3/uL (0.2-0.9); Monocytes % 6.5 %; Neutrophils # 7.17 10^3/uL (1.8-7.7); Neutrophils % 81.3 %; Nucleated Red Blood Cells % 0 %; Platelet Count 313 10^3/cmm (157-399); Red Cell Distribution Width 12.7 % (12.1-15.1)
[2023-10-16 04:59] LABS: Anion Gap 16.5 (5-19); Blood Urea Nitrogen 26 mg/dL (6-20); Calcium 9.4 mg/dL (8.5-10.5); Carbon Dioxide 23 mmol/L (22-29); Chloride 95 mmol/L (98-107); Creatinine Clr Calc Pharmacy 54.4844; Glomerular Filtration Rate 32.7 mL/min (90-130); Glucose 101 mg/dL (65-115); Magnesium 2.3 mg/dL (1.7-2.3); Osmolality Calculated 275 mOsm/kg (285-295); Potassium 4.5 mmol/L (3.5-5.1); Sodium 130 mmol/L (136-145)
[2023-10-16 06:00] VITALS: PULSE 88
[2023-10-16 07:51] VITALS: BP 155/92; PULSE 83; RESP 20; TEMP 36.6; O2SAT 95
[2023-10-16 07:56] VITALS: PULSE 84; RESP 15; O2SAT 94
[2023-10-16] MEDS: FUROsemide 40 mg Tablet PO (09:02)
[2023-10-16] MEDS: hyDRALAzine 25 mg Tablet PO (09:03)
[2023-10-16] MEDS: thiamine 100 mg Tablet PO (09:03)
[2023-10-16] MEDS: amlodipine 10 mg Tablet PO (09:03)
[2023-10-16] MEDS: potassium chloride ER 20 mEq Tablet PO (09:03)
[2023-10-16] MEDS: multivitamin therapeutic Tablet 1 TAB PO (09:03)
[2023-10-16] MEDS: folic acid 1 mg Tablet PO (09:03)
[2023-10-16 12:00] VITALS: BP 130/90
--- NOTE | 2023-10-16 13:04 | PM.DCS ---
Discharge Providers Date of Admission: 10/14/23 22:48 Date of Discharge: October 16, 2023 Attending Provider at Admission: Jhonny Inman MD Attending Provider at Discharge: Summer Martínez MD Diagnoses at Discharge Discharge Diagnosis (1) Hypertensive urgency: Status: Resolved (2) Methamphetamine abuse: Status: Acute Reason for Visit Reason for Visit: high bp,sob Hospital Course Hospital Course Patient was admitted for hypertensive urgency. She required a nitroglycerin drip. Patient was placed on amlodipine 10 mg daily and hydralazine 30 3 times daily was started. He also remained on CIWA protocol during hospital stay. CALEB also present which is probably his new baseline at this point. Creatinine 2.0. Echo within normal is. Fasprin edema possibly due to hypertensive urgency. Patient counseled to refrain from methamphetamine use.. He says he takes it 2 to pain in his knees. He was interested in setting up with a pain management physician. Pain clinic referral given at discharge. Please see progress notes for further details. Physical Exam Narrative: No active signs of heart failure Awake and alert GCS 15 Currently on room air Hypertensive S1, S2 Nonfocal neuroexam Pleasant and cooperative Dry skin Discharge Data Studies Completed and Pending Completed Studies During Hospitalization Category Date Time Status XR chest 1V portable [id number] Stat Exams 10/14/23 18:50 Completed CV. echo complete* [id number] Routine Ultrasound 10/15/23 23:32 Completed Radiology Impressions Chest X-Ray 10/14/23 18:50 IMPRESSION: 1. Small right pleural effusion. 2. Cardiomegaly. Laboratory Results WBC 8.80 10^3/uL (3.29-11.43) 10/16/23 04:14 RBC 4.90 10^6/uL (3.85-5.65) 10/16/23 04:14 Hgb 15.10 g/dL (11.27-16.99) 10/16/23 04:14 Hct 44.6 % (37-53) 10/16/23 04:14 MCV 91.0 fl (82-101) 10/16/23 04:14 MCH 30.8 pg (27-33) 10/16/23 04:14 MCHC 33.9 g/dL (30-55) 10/16/23 04:14 RDW 12.7 % (12.1-15.1) 10/16/23 04:14 Plt Count 313 10^3/cmm (157-399) 10/16/23 04:14 MPV 8.7 fL (7.4-10.4) 10/16/23 04:14 Neut % (Auto) 81.3 % 10/16/23 04:14 Lymph % (Auto) 9.8 % 10/16/23 04:14 [place] % (Auto) 6.5 % 10/16/23 04:14 Eos % (Auto) 1.3 % 10/16/23 04:14 Baso % (Auto) 0.5 % 10/16/23 04:14 Neut # (Auto) 7.17 10^3/uL (1.8-7.7) 10/16/23 04:14 Lymph # (Auto) 0.9 10^3/uL (0.8-4.8) 10/16/23 04:14 [place] # (Auto) 0.6 10^3/uL (0.2-0.9) 10/16/23 04:14 Eos # (Auto) 0.1 10^3/uL (0.0-0.8) 10/16/23 04:14 Baso # (Auto) 0.0 10^3/uL (0.0-0.1) 10/16/23 04:14 Nucleated RBC % (auto) 0 % 10/16/23 04:14 Nucleated RBCs # 0.0 /100WBC 10/16/23 04:14 PT 14.10 SECONDS (12.1-14.9) 10/14/23 19:34 INR 1.06 (0.8-1.2) 10/14/23 19:34 APTT 31.3 SECONDS (23.9-36.7) 10/14/23 19:34 Sodium 130 mmol/L (136-145) L 10/16/23 04:14 Potassium 4.5 mmol/L (3.5-5.1) 10/16/23 04:14 Chloride 95 mmol/L (98-107) L 10/16/23 04:14 Carbon Dioxide 23 mmol/L (22-29) 10/16/23 04:14 Anion Gap 16.5 (5-19) 10/16/23 04:14 BUN 26 mg/dL (6-20) H 10/16/23 04:14 Creatinine 2.1 mg/dL (0.7-1.2) H 10/16/23 04:14 GFR Calculation 32.7 mL/min (90-130) L 10/16/23 04:14 Glucose 101 mg/dL (65-115) 10/16/23 04:14 Calculated Osmolality 275 mOsm/kg (285-295) L 10/16/23 04:14 Calcium 9.4 mg/dL (8.5-10.5) 10/16/23 04:14 Magnesium 2.3 mg/dL (1.7-2.3) 10/16/23 04:14 Total Bilirubin 1.1 mg/dL (0.15-1.2) 10/14/23 19:34 AST 30 U/L (0-40) 10/14/23 19:34 ALT 32 U/L (0-41) 10/14/23 19:34 Alkaline Phosphatase 117 U/L (40-130) 10/14/23 19:34 Troponin T Baseline 45 ng/L (0-15) H 10/14/23 19:34 Troponin T 120 Minute 45.57 ng/L (0-15) H 10/14/23 21:38 Delta Troponin T 0.57 ABS# (0-10) 10/14/23 21:38 Troponin T Hi Sens 6Hr 46.69 ng/L (0-15) H 10/15/23 00:40 Troponin T Hi Sens 6Hr Delta 1.69 ng/L (0-12) 10/15/23 00:40 C-Reactive Protein 46.7 mg/L (0.0-4.9) H 10/15/23 03:50 NT-Pro-B Natriuret Pep 1951 pg/mL (0-125) H 10/14/23 19:34 Total Protein 7.1 g/dL (6.6-8.7) 10/14/23 19:34 Albumin 4.0 g/dL (3.5-5.2) 10/14/23 19:34 Globulin 3.1 g/dL (1.3-4.6) 10/14/23 19:34 TSH 3.96 uIU/mL (0.27-4.20) 10/14/23 19:34 Urine Opiates Screen Negative ng/mL (Negative) 10/14/23 21:38 Ur Barbiturates Screen Negative ng/mL (Negative) 10/14/23 21:38 Ur Phencyclidine Scrn Negative ng/mL (Negative) 10/14/23 21:38 Ur Amphetamines Screen Positive ng/mL (Negative) H 10/14/23 21:38 U Benzodiazepines Scrn Negative ng/mL (Negative) 10/14/23 21:38 Urine Cocaine Screen Negative ng/mL (Negative) 10/14/23 21:38 U Marijuana (THC) Screen Negative ng/mL (Negative) 10/14/23 21:38 Vitals Last Vital Signs Temp 97.8 F 10/16/23 07:51 Pulse 84 10/16/23 07:56 Resp 15 10/16/23 07:56 BP 130/90 10/16/23 12:00 Pulse Ox 94 10/16/23 07:56 O2 Del Method Room Air 10/16/23 07:56 Discharge Plan Discharge Patient Disposition: Home Condition: Stable Prescriptions: New hydralazine 25 mg Tablet 25 mg PO TID Qty: 90 0RF amlodipine 10 mg Tablet 10 mg PO DAILY Qty: 30 0RF folic acid 1 mg Tablet 1 mg PO DAILY Qty: 30 0RF Vitamin B-1 (mononitrate) 100 mg Tablet 100 mg PO DAILY Qty: 30 0RF Thera 400 mcg Tablet 1 tab PO DAILY Qty: 30 0RF Discharge Orders: Discharge Order (Routine); Ordered 10/16/23 Ordered By: Summer Martínez Other Ambulatory Orders: MCT/Event Monitor 30 Days (Routine) Timeframe: 1 Day Facility: [facility] - Location: Radiology Ordered By: Summer Martínez Referrals: Kaiser Casas MD [Physician] - 10/24/23 9:30 am Emely Guardado MD [Physician] - 11/14/23 3:00 pm (You are scheduled on October 31 at 2:00P.M. to fitted for an 30 day Event monitor. ) Jona Lovett MD [Physician] - (We have notified your physician's clinic of the need for a follow-up appointment to be scheduled. If you have not heard from them within the next 2 business days, please call them directly. ) Discharge Diet: Cardiac Discharge Activity: Resume usual activity Patient Instructions: Thiamine (By mouth), Folic Acid (By mouth), Multivitamins, Adult Formula (By mouth), Hydralazine (By mouth), Amlodipine (By mouth) (Hypertenipine-2.5, Norvasc, Norliqva), Hypertension, Chronic Kidney Disease (DC), Heart Block (DC), Methamphetamine Use Disorder (DC), Opioid Safety Activity Restrictions/Additional Instructions: Please refrain from using methamphetamine check your bp twice a day and take readings to next doc appointment Discharge Attestations Time Spent in Discharge Care*: greater than 30 min Quality Metrics Clinical Quality Measures [ No reported AMI, CVA or VTE this stay] Coding Level of Care Code Acute Code for Chg Fwd Diagnoses Hypertensive urgency I16.0 Methamphetamine abuse F15.10
[2023-10-16 13:38] VITALS: BP 130/90
--- NOTE | 2023-10-16 14:47 | PC.NURSE ---
discharge instructions given and explained.meds to beds provided.pt verb understanding of instructions.discharged via w/c to exit.pt to drive self home
== END 2023-10-16 14:49 | disposition home or self-care (01) | DRG 304 ==
LOC: ER 20:02 → ER IP 23:20 → CSU 10-15 05:45
PROVIDERS: Emergency Medicine; Admitting Provider Internal Medicine; Emergency Provider Internal Medicine; Visit Provider Internal Medicine
DX: I16.0 Hypertensive urgency (principal); J81.0 Acute pulmonary edema; N17.9 Acute kidney failure, unspecified; I12.9 Hypertensive chronic kidney disease with stage 1 through stage 4 chronic kidney disease, or unspecified chronic kidney disease; N18.9 Chronic kidney disease, unspecified; F17.210 Nicotine dependence, cigarettes, uncomplicated; I44.1 Atrioventricular block, second degree; F15.10 Other stimulant abuse, uncomplicated; F10.10 Alcohol abuse, uncomplicated
CPT/HCPCS: 36415; 71045; 80048; 80053; 80306; 83735; 83880; 84443; 84484; 85025; 85610; 85730; 86140; 87426; 93005; 93306; 96372; 96374; 96375; 96376; 99285; J0360; J1644; J1940; J3411; J3490

== ENCOUNTER 2025-03-22 09:13 | Emergency (ER) | payer SELFPAY ==
[2025-03-22 09:18] VITALS: BP 194/94; PULSE 87; RESP 18; TEMP 36.7; O2SAT 95; BMI 40.6
--- NOTE | 2025-03-22 09:24 | ECG_ITS ---
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: : 1965 Requested By: Ankit Butler Order Number: [id number] Reading MD: JAMES GRAHAM Measurements Intervals [place] Rate: 81 P: 22 HI: 252 QRS: -73 QRSD: 130 T: 78 QT: 395 QTc: 460 Interpretive Statements SINUS RHYTHM WITH FIRST DEGREE AV BLOCK RIGHT BUNDLE BRANCH BLOCK [120+ ms QRS DURATION, UPRIGHT V1, 40+ ms S IN I/aVL/V4/V5/V6] LEFT ANTERIOR FASCICULAR BLOCK [QRS AXIS <= -45, QR IN I, RS IN II] SEPTAL MYOCARDIAL INFARCTION , PROBABLY OLD [40+ ms Q WAVE IN V1/V2] INTERPRETATION BASED ON A DEFAULT AGE OF 40 YEARS Compared to ECG 10/15/2023 00:53:45 First degree AV block now present Right bundle-branch block now present Myocardial infarct finding now present Incomplete right bundle-branch block no longer present Electronically Signed On 03-22-2025 19:03:24 CDT by JAMES GRAHAM [email or web address]
--- NOTE | 2025-03-22 09:43 | XRR_ITS ---
PROCEDURE INFORMATION: Exam: XR Chest Exam date and time: 03/22/2025 9:46 AM Age: 60 years old Clinical indication: Pain; Chest pressure; Additional info: Chest pain TECHNIQUE: Imaging protocol: Radiologic exam of the chest. Views: 1 view. COMPARISON: CR XR chest 1V portable [id number] 10/14/2023 6:57 PM FINDINGS: Lungs: Slightly increasing opacity at the right lung base due to an increasing infiltrate and minimally increasing right pleural effusion, small in size. Pleural spaces: See Lungs finding. Heart/Mediastinum: The heart and mediastinum normal. Bones/joints: Unremarkable. XR/XR chest 1V portable [id number] IMPRESSION: Increasing opacity at the right lung base.
[2025-03-22 09:49] LABS: Basophils % 0.3 %; Eosinophils # 0.2 10^3/uL (0.0-0.8); Eosinophils % 2.2 %; Hematocrit 35.2 % (37-53); Lymphocytes # 0.6 10^3/uL (0.8-4.8); Mean Corpuscular HGB Conc 32.7 g/dL (30-55); Mean Corpuscular Hemoglobin 30.6 pg (27-33); Mean Corpuscular Volume 93.6 fl (82-101); Mean Platelet Volume 8.6 fL (7.4-10.4); Monocytes # 0.4 10^3/uL (0.2-0.9); Monocytes % 5.1 %; Neutrophils # 7.34 10^3/uL (1.8-7.7); Neutrophils % 85.1 %; Nucleated Red Blood Cells % 0 %; Platelet Count 253 10^3/cmm (157-399); Red Blood Count 3.76 10^6/uL (3.85-5.65); Red Cell Distribution Width 12.7 % (12.1-15.1); White Blood Count 8.63 10^3/uL (3.29-11.43)
--- NOTE | 2025-03-22 09:51 | ED_ITS ---
HPI - SOB/Dyspnea 2 General: Chief Complaint: Shortness of Breath/Dyspnea Stated Complaint: Sob, Dizzy Time Seen by Provider: 03/22/25 09:29 History of Present Illness: HPI Narrative: 60-year-old male presents emergency room complaining of dizziness shortness of breath congestion. No chronic respiratory illnesses he was previously on Lasix but stopped he has some chronic kidney disease. His blood pressure has been elevated. He is also diabetic. He does not have any chest pain at this time. Associated symptoms: Deny abdominal pain, chest pain or fever(s) Related Data Home Medications ?Medication ?Instructions ?Recorded ?Confirmed acetaminophen 650 mg 1,300 mg PO Q8H PRN pain' 03/22/25 tablet,extended release (Tylenol Arthritis Pain) Previous Rx's ?Medication ?Instructions ?Recorded hydralazine 25 mg tablet 25 mg PO TID #90 tabs amlodipine 10 mg tablet 10 mg PO DAILY #30 tabs 02/26 04/21 metoprolol succinate 25 mg 12.5 mg (1 x 25 mg) PO DA ELANA #15 03/22/25 tablet,extended release 24 hr tabs (Toprol XL) pregabalin 75 mg capsule (Lyrica) 75 mg PO BID #60 cap s 03/22/25 tamsulosin 0.4 mg capsule 0.4 mg PO DAILY #30 caps Allergies Allergy/AdvReac Type Severity Reaction Status Date / Time No Known Allergies Allergy Verified 10/15/23 07:22 Review of Systems 2 Const: Denies: fever(s) or chills Card: Denies: chest pain Resp: Reports: dyspnea GI: Denies: abdominal pain : Denies: dysuria, urinary frequency or urinary urgency Musc: Denies: neck pain or back pain Skin/Breast: Denies: rash PFSH ED 2 PFSH: Medical History Methamphetamine abuse Heart block Surgical History No pertinent past surgical history Physical Exam 2 Const: GENERAL APPEARANCE: cooperative ORIENTATION/CONSCIOUSNESS: Yes awake HENMT: COMMON NORMALS: normocephalic, atraumatic and hearing grossly normal bilaterally HEAD & SCALP: normocephalic and atraumatic Resp: COMMON NORMALS: normal respiratory effort, No retractions, No use of accessory muscles and clear to auscultation bilaterally AUSCULTATION: clear to auscultation bilaterally Cardio: COMMON NORMALS: regular rate, regular rhythm and No murmurs present (Cardio) RATE: regular rate RHYTHM: regular rhythm GI: COMMON NORMALS: Soft to palpation and No hepatosplenomegaly present A USCULTATION: Yes normoactive bowel sounds PALPATION: Yes Soft to palpation, No Tenderness to palpation present (GI), No Guarding due to palpation present (GI) and Yes No hepatosplenomegaly present Extremity: COMMON NORMALS: normal to inspection, capillary refill normal, no clubbing, cyanosis or edema, no calf tenderness and no pedal edema Skin: COMMON NORMALS: no rashes or lesions noted GENERAL SKIN EXAM: no rashes or lesions noted Course 2 Vital Signs: Vital signs: Vital Signs Temperature 98.0 F 03/22/25 09:18 Pulse Rate 77 03/22/25 12:48 Respiratory Rate 16 03/22/25 12:48 Blood Pressure 161/90 03/22/25 12:48 Pulse Oximetry 92 03/22/25 12:48 Oxygen Delivery Me thod Room Air 03/22/25 09:58 MDM - SOB/Dyspnea Medical Decision Making Patient's symptoms resolved during the course of the evaluation. He feels well enough to go home. Reviewing his chart there are several issues 1 he states he quit in part quit taking Lasix because he was taking it morning but was urinating frequently in small amounts throughout the night we did do a postvoid residual was able to go almost completely empty his bladder something he is retaining per se. Will start him on tamsulosin 1.4 nightly for his blood pressure add metoprolol 12.5 p.o. daily continue the hydralazine and amlodipine. He is complaining of some leg pain will add Lyrica 75 mg twice daily. He has some chronic kidney disease he should follow-up with his doctor possibly be referred to nephrology. Needs to have his renal function monitored. Finally we will set him up for a stress test and an outpatient echocardiogram. Medical Records I reviewed the patient's medical records. Lab Data I reviewed the patient's lab results. 03/22/25 09:39 03/22/25 09:39 Labs/Radiology: Radiology Impressions Chest X-Ray 03/22/25 09:43 IMPRESSION: Increasing opacity at the right lung base. Laboratory Results WBC 8.63 10^3/uL (3.29-11.43) 03/22/25 09:39 RBC 3.76 10^6/uL (3.85-5.65) L 03/22/25 09:39 Hgb 11.50 g/dL (11.27-16.99) 03/22/25 09:39 Hct 35.2 % (37-53) L 03/22/25 09:39 MCV 93.6 fl (82-101) 03/22/25 09:39 MCH 30.6 pg (27-33) 03/22/25 09:39 MCHC 32.7 g/dL (30-55) 03/22/25 09:39 RDW 12.7 % (12.1-15.1) 03/22/25 09:39 Plt Count 253 10^3/cmm (157-399) 03/22/25 09:39 MPV 8.6 fL (7.4-10.4) 03/22/25 09:39 Neut % (Auto) 85.1 % 03/22/25 09:39 Lymph % (Auto) 7.0 % 03/22/25 09:39 [place] % (Auto) 5.1 % 03/22/25 09:39 Eos % (Auto) 2.2 % 03/22/25 09:39 Baso % (Auto) 0.3 % 03/22/25 09:39 Neut # (Auto) 7.34 10^3/uL (1.8-7.7) 03/22/25 09:39 Lymph # (Auto) 0.6 10^3/uL (0.8-4.8) L 03/22/25 09:39 [place] # (Auto) 0.4 10^3/uL (0.2-0.9) 03/22/25 09:39 Eos # (Auto) 0.2 10^3/uL (0.0-0.8) 03/22/25 09:39 Baso # (Auto) 0.0 10^3/uL (0.0-0.1) 03/22/25 09:39 Nucleated RBC % (auto) 0 % 03/22/25 09:39 Nucleated RBCs # 0.0 /100WBC 03/22/25 09:39 Sodium 137 mmol/L (136-145) 03/22/25 09:39 Potassium 4.5 mmol/L (3.5-5.1) 03/22/25 09:39 Chloride 103 mmol/L (98-107) 03/22/25 09:39 Carbon Dioxide 21 mmol/L (22-29) L 03/22/25 09:39 Anion Gap 17.5 (5-19) 03/22/25 09:39 BUN 39 mg/dL (6-20) H 03/22/25 09:39 Creatinine 2.9 mg/dL (0.7-1.2) H 03/22/25 09:39 GFR Calculation 22.4 mL/min (90-130) L 03/22/25 09:39 Glucose 107 mg/dL (65-115) 03/22/25 09:39 Calculated Osmolality 294 mOsm/kg (285-295) 03/22/25 09:39 Calcium 8.6 mg/dL (8.5-10.5) 03/22/25 09:39 Total Bilirubin 0.5 mg/dL (0.15-1.2) 03/22/25 09:39 AST 15 U/L (0-40) 03/22/25 09:39 ALT 15 U/L (0-41) 03/22/25 09:39 Alkaline Phosphatase 98 U/L (40-130) 03/22/25 09:39 Troponin T Baseline 44 ng/L (0-15) H 03/22/25 09:39 Troponin T 120 Minute 38.45 ng/L (0-15) H 03/22/25 11:14 Delta Troponin T -5.55 ABS# (0-10) L 03/22/25 11:14 NT-Pro-B Natriuret Pep 1738 pg/mL (0-125) H 03/22/25 09:39 Total Protein 7.1 g/dL (6.6-8.7) 03/22/25 09:39 Albumin 3.9 g/dL (3.5-5.2) 03/22/25 09:39 Globulin 3.2 g/dL (1.3-4.6) 03/22/25 09:39 All radiology interpretation(s) finalized by discharge Discharge Plan Discharge Patient Disposition: Home Clinical Impression: HTN (hypertension), Dyspnea, CKD (chronic kidney disease), Peripheral neuropathy, BPH (benign prostatic hyperplasia) Condition: Stable Prescriptions: New pregabalin [Lyrica] 75 mg capsule 75 mg PO BID Qty: 60 0RF tamsulosin 0.4 mg capsule 0.4 mg PO DAILY Qty: 30 0RF metoprolol succinate [Toprol XL] 25 mg tablet extended release 24 hr 12.5 mg PO DAILY Qty: 15 0RF amlodipine 10 mg tablet 10 mg PO DAILY Qty: 30 0RF Discontinued amlodipine 10 mg Tablet 10 mg PO DAILY Qty: 30 0RF No Action hydralazine 25 mg Tablet 25 mg PO TID Qty: 90 0RF acetaminophen [Tylenol Arthritis Pain] 650 mg Tablet Extended Release 1,300 mg PO Q8H PRN (Reason: pain') Discharge Orders: Discharge ED (Routine); Ordered 03/22/25 Ordered By: Ankit Coker Discharge Diet: Usual diet Discharge Activity: Resume usual activity Patient Instructions: Opioid Safety, Pain Management Activity Restrictions/Additional Instructions: Thank you for choosing [facility] for your healthcare needs today. It is very important that you follow up as instructed or that you return to the Emergency Department should you have concerns or if your condition changes or worsens in any way. You are seen in the emergency room complaining of shortness of breath is improved while you are here your cardiac enzymes did not show any sign of acute coronary syndrome your EKGs did not show any acute ST changes. Reviewing your chart your kidney function has been worsening. Will set you up for a echocardiogram of your heart as well as outpatient stress testing to further evaluate your heart. For your blood pressure recommend you continue the amlodipine 10 mg daily add Toprol-XL at half a tablet once a day. For your difficulty emptying her bladder recommend starting tamsulosin alone 1 tablet at bedtime. For your chronic pain in your legs recommend you start pregabalin 75 mg 1 pill twice a day. Case manage will make arrangements for outpatient stress testing this thing and echocardiogram. Your kidney function has steadily worsened over the last couple of years. You should see a senior telecommunications engineer to further evaluate. 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
[2025-03-22] MEDS: aspirin 81 mg Chew Tablet 324 MG PO (09:55)
[2025-03-22 09:58] VITALS: BP 171/99; PULSE 78; RESP 18; O2SAT 98
[2025-03-22 10:02] LABS: Troponin(5th) Baseline 44 ng/L (0-15)
[2025-03-22 10:05] LABS: Alanine Aminotransferase 15 U/L (0-41); Albumin Level 3.9 g/dL (3.5-5.2); Alkaline Phosphatase 98 U/L (40-130); Anion Gap 17.5 (5-19); Aspartate Amino Transferase 15 U/L (0-40); Blood Urea Nitrogen 39 mg/dL (6-20); Calcium 8.6 mg/dL (8.5-10.5); Carbon Dioxide 21 mmol/L (22-29); Chloride 103 mmol/L (98-107); Creatinine Clr Calc Pharmacy 39.1776; Globulin 3.2 g/dL (1.3-4.6); Glomerular Filtration Rate 22.4 mL/min (90-130); Glucose 107 mg/dL (65-115); Osmolality Calculated 294 mOsm/kg (285-295); Potassium 4.5 mmol/L (3.5-5.1); Sodium 137 mmol/L (136-145); Total Bilirubin 0.5 mg/dL (0.15-1.2); Total Protein 7.1 g/dL (6.6-8.7)
[2025-03-22 11:14] LABS: NT Pro B Type Natriuretic Pept 1738 pg/mL (0-125)
[2025-03-22 11:33] LABS: Troponin 5 2HR 38.45 ng/L (0-15)
[2025-03-22 11:38] LABS: Troponin 5 2HR Delta -5.55 ABS# (0-10)
[2025-03-22 12:48] VITALS: BP 161/90; PULSE 77; RESP 16; O2SAT 92
--- NOTE | 2025-03-22 12:50 | PC.NURSE ---
pre void bladder scan revealed 400 mL. pt voided 400 mL in single void. post scan reveals <3 mL. MD childs d/c
--- NOTE | 2025-03-23 12:05 | DCPLANNER ---
christophe request sent to centralized scheduling
== END 2025-03-22 13:07 | disposition home or self-care (01) ==
PROVIDERS: Emergency Provider Family Medicine
DX: I12.9 Hypertensive chronic kidney disease with stage 1 through stage 4 chronic kidney disease, or unspecified chronic kidney disease (principal); N18.9 Chronic kidney disease, unspecified; N40.0 Benign prostatic hyperplasia without lower urinary tract symptoms; G62.9 Polyneuropathy, unspecified
CPT/HCPCS: 71045; 80053; 83880; 84484; 85025; 93005; 99285; J9999

== ENCOUNTER 2025-03-23 17:15 | Emergency (ER) | payer SELFPAY ==
--- NOTE | 2025-03-23 17:19 | XRR_ITS ---
PROCEDURE INFORMATION: Exam: XR Chest Exam date and time: 03/23/2025 5:47 PM Age: 60 years old Clinical indication: Pain; Chest pressure; Additional info: Cp TECHNIQUE: Imaging protocol: Radiologic exam of the chest. Views: 1 view. COMPARISON: CR (CHEST, ) 03/22/2025 9:46 AM FINDINGS: Lungs: Similar right lung hazy and interstitial opacities which may be related to infectious/inflammatory processes underlying scarring. No new lobar consolidation. Pleural spaces: Unremarkable. No pleural effusion. No pneumothorax. Heart/Mediastinum: Unremarkable. No cardiomegaly. Bones/joints: Unremarkable. XR/XR chest 1V portable [id number] IMPRESSION: As above.
[2025-03-23 17:21] VITALS: BP 170/85; PULSE 96; RESP 15; TEMP 36.7; O2SAT 96; BMI 40.6
[2025-03-23 18:10] LABS: Basophils % 0.4 %; Eosinophils # 0.1 10^3/uL (0.0-0.8); Eosinophils % 1.3 %; Hematocrit 35.7 % (37-53); Lymphocytes # 0.6 10^3/uL (0.8-4.8); Lymphocytes % 6.3 %; Mean Corpuscular HGB Conc 33.1 g/dL (30-55); Mean Corpuscular Hemoglobin 30.7 pg (27-33); Mean Platelet Volume 8.7 fL (7.4-10.4); Monocytes # 0.5 10^3/uL (0.2-0.9); Monocytes % 4.9 %; Neutrophils # 8.57 10^3/uL (1.8-7.7); Neutrophils % 86.9 %; Nucleated Red Blood Cells % 0 %; Platelet Count 291 10^3/cmm (157-399); Red Blood Count 3.84 10^6/uL (3.85-5.65); Red Cell Distribution Width 12.8 % (12.1-15.1); White Blood Count 9.86 10^3/uL (3.29-11.43)
[2025-03-23 18:44] LABS: Troponin(5th) Baseline 45 ng/L (0-15)
[2025-03-23 18:47] LABS: Alanine Aminotransferase 13 U/L (0-41); Albumin Level 3.9 g/dL (3.5-5.2); Alkaline Phosphatase 104 U/L (40-130); Anion Gap 19.2 (5-19); Aspartate Amino Transferase 14 U/L (0-40); Blood Urea Nitrogen 31 mg/dL (6-20); Calcium 8.8 mg/dL (8.5-10.5); Carbon Dioxide 21 mmol/L (22-29); Chloride 105 mmol/L (98-107); Creatinine Clr Calc Pharmacy 49.3979; Globulin 3.1 g/dL (1.3-4.6); Glomerular Filtration Rate 29.2 mL/min (90-130); Glucose 119 mg/dL (65-115); Lipase 41 U/L (13-60); Osmolality Calculated 300 mOsm/kg (285-295); Potassium 4.2 mmol/L (3.5-5.1); Sodium 141 mmol/L (136-145); Total Bilirubin 1.1 mg/dL (0.15-1.2)
--- NOTE | 2025-03-23 19:19 | ECG_ITS ---
[facility] Date: 2025-03-23 Pat Name: Donnie Nina Department: Room: Gender: Male [employer]: : 1965 Requested By: Gigi Gibbs Order Number: [id number] Reading MD: Measurements Intervals [place] Rate: 80 P: 48 ID: [id number] QRS: 268 QRSD: 135 T: 64 QT: 404 QTc: 468 Interpretive Statements SINUS RHYTHM WITH FIRST DEGREE AV BLOCK RIGHT AXIS DEVIATION [QRS AXIS > 100] RIGHT BUNDLE BRANCH BLOCK [120+ ms QRS DURATION, UPRIGHT V1, 40+ ms S IN I/aVL/V4/V5/V6] SEPTAL MYOCARDIAL INFARCTION , OF INDETERMINATE AGE [40+ ms Q WAVE IN V1/V2] [email or web address]
--- NOTE | 2025-03-23 19:29 | W.ED.CHESTPA ---
HPI - Chest Pain General: Chief Complaint: Chest Pain Stated Complaint: high bp, chest pain Time Seen by Provider: 03/23/25 18:03 Source: patient Mode of arrival: ambulatory Limitations: no limitations History of Present Illness: 60-year-old male has a history of hypertension states he is seen here last night for hypertension is prescribed no meds states he is continue to be hypertensive today. He states has had some mild chest pains today as well denies any pain currently he denies any headache. Related Data Home Medications ?Medication ?Instructions ?Recorded ?Confirmed acetaminophen 650 mg 1,300 mg PO Q8H PRN pain' 03/22/25 03/22/25 tablet,extended release (Tylenol Arthritis Pain) Previous Rx's ?Medication ?Instructions ?Recorded hydralazine 25 mg tablet 25 mg PO TID #90 tabs 10/16/23 amlodipine 10 mg tablet 10 mg PO DAILY #30 tabs 03/22/25 pregabalin 75 mg capsule (Lyrica) 75 mg PO BID #60 caps 03/22/25 tamsulosin 0.4 mg capsule 0.4 mg PO DAILY #30 caps 03/22/25 metoprolol succinate 25 mg 25 mg PO DAILY #15 tabs 03/23/25 tablet,extended release 24 hr (Toprol XL) Allergies Allergy/AdvReac Type Severity Reaction Status Date / Time No Known Allergies Allergy Verified 10/15/23 07:22 [facility] ED PFSH: Medical History Methamphetamine abuse Heart block Surgical History No pertinent past surgical history Physical Exam Const: COMMON NORMALS: no acute distress, patient oriented x3 and healthy appearing HENMT: COMMON NORMALS: normocephalic and atraumatic HEAD & SCALP: normocephalic and atraumatic Eye: COMMON NORMALS: conjunctivae normal CONJUNCTIVA: Yes conjunctivae normal Neck/C-Spine: COMMON NORMALS: full ROM and supple Chest: COMMONS NORMALS: normal inspection of the chest Resp: COMMON NORMALS: normal respiratory effort, No retractions, No use of accessory muscles and clear to auscultation bilaterally AUSCULTATION: clear to auscultation bilaterally Cardio: COMMON NORMALS: regular rate, regular rhythm and No murmurs present (Cardio) RATE: regular rate RHYTHM: regular rhythm Extremity: COMMON NORMALS: normal to inspection and full ROM Neuro: COMMON NORMALS: patient oriented x3, moves all extremities and no focal motor deficits Psych: COMMON NORMALS: mental status grossly normal, Normal thought process present and cooperative THOUGHT PROCESS: Normal thought process present Skin: COMMON NORMALS: no rashes or lesions noted and no wounds GENERAL SKIN EXAM: no rashes or lesions noted Course Vital Signs: Vital signs: Vital Signs Temperature 98.0 F 03/23/25 17:21 Pulse Rate 88 03/23/25 19:34 Respiratory Rate 16 03/23/25 19:34 Blood Pressure 185/100 03/23/25 19:34 Pulse Oximetry 95 03/23/25 19:34 Oxygen Delivery Me thod Room Air 03/23/25 19:34 MDM - Chest Pain Medical Decision Making Patient presents with hypertension troponins here negative no signs of ACS we will increase his metoprolol from 12.5-25 he is to follow-up with PCP return if worsening. Medical Records I reviewed the patient's medical records. Lab Data I reviewed the patient's lab results. 03/23/25 18:01 03/23/25 18:01 Radiology Impressions Chest X-Ray 03/23/25 17:19 IMPRESSION: As above. Laboratory Results WBC 9.86 10^3/uL (3.29-11.43) 03/23/25 18:01 RBC 3.84 10^6/uL (3.85-5.65) L 03/23/25 18:01 Hgb 11.80 g/dL (11.27-16.99) 03/23/25 18:01 Hct 35.7 % (37-53) L 03/23/25 18:01 MCV 93.0 fl (82-101) 03/23/25 18:01 MCH 30.7 pg (27-33) 03/23/25 18: MCHC 33.1 g/dL (30-55) 03/23/25 18:01 RDW 12.8 % (12.1-15.1) 03/23/25 18:01 Plt Count 291 10^3/cmm (157-399) 03/23/25 18:01 MPV 8.7 fL (7.4-10.4) 03/23/25 18:01 Neut % (Auto) 86.9 % 03/23/25 18:01 Lymph % (Auto) 6.3 % 03/23/25 18:01 [place] % (Auto) 4.9 % 03/23/25 18:01 Eos % (Auto) 1.3 % 03/23/25 18:01 Baso % (Auto) 0.4 % 03/23/25 18:01 Neut # (Auto) 8.57 10^3/uL (1.8-7.7) H 03/23/25 18:01 Lymph # (Auto) 0.6 10^3/uL (0.8-4.8) L 03/23/25 18:01 [place] # (Auto) 0.5 10^3/uL (0.2-0.9) 03/23/25 18:01 Eos # (Auto) 0.1 10^3/uL (0.0-0.8) 03/23/25 18:01 Baso # (Auto) 0.0 10^3/uL (0.0-0.1) 03/23/25 18:01 Nucleated RBC % (auto) 0 % 03/23/25 18:01 Nucleated RBCs # 0.0 /100WBC 03/23/25 18:01 PT 13.90 SECONDS (12.1-14.9) 03/23/25 18:01 INR 1.00 (0.8-1.2) 03/23/25 18:01 Sodium 141 mmol/L (136-145) 03/23/25 18:01 Potassium 4.2 mmol/L (3.5-5.1) 03/23/25 18:01 Chloride 105 mmol/L (98-107) 03/23/25 18:01 Carbon Dioxide 21 mmol/L (22-29) L 03/23/25 18:01 Anion Gap 19.2 (5-19) H 03/23/25 18:01 BUN 31 mg/dL (6-20) H 03/23/25 18:01 Creatinine 2.3 mg/dL (0.7-1.2) H 03/23/25 18:01 GFR Calculation 29.2 mL/min (90-130) L 03/23/25 18:01 Glucose 119 mg/dL (65-115) H 03/23/25 18:01 Calculated Osmolality 300 mOsm/kg (285-295) H 03/23/25 18:01 Calcium 8.8 mg/dL (8.5-10.5) 03/23/25 18:01 Total Bilirubin 1.1 mg/dL (0.15-1.2) 03/23/25 18:01 AST 14 U/L (0-40) 03/23/25 18:01 ALT 13 U/L (0-41) 03/23/25 18:01 Alkaline Phosphatase 104 U/L (40-130) 03/23/25 18:01 Troponin T Baseline 45 ng/L (0-15) H 03/23/25 18:01 Troponin T 120 Minute 44.01 ng/L (0-15) H 03/23/25 19:51 Delta Troponin T -0.99 ABS# (0-10) L 03/23/25 19:51 Total Protein 7.0 g/dL (6.6-8.7) 03/23/25 18:01 Albumin 3.9 g/dL (3.5-5.2) 03/23/25 18:01 Globulin 3.1 g/dL (1.3-4.6) 03/23/25 18:01 Lipase 41 U/L (13-60) 03/23/25 18:01 No radiology studies performed this visit Discharge Plan Discharge Patient Disposition: Home Clinical Impression: HTN (hypertension) Condition: Stable Prescriptions: Changed metoprolol succinate [Toprol XL] 25 mg tablet extended release 24 hr 25 mg PO DAILY Qty: 15 0RF No Action hydralazine 25 mg Tablet 25 mg PO TID Qty: 90 0RF acetaminophen [Tylenol Arthritis Pain] 650 mg Tablet Extended Release 1,300 mg PO Q8H PRN (Reason: pain') pregabalin [Lyrica] 75 mg capsule 75 mg PO BID Qty: 60 0RF tamsulosin 0.4 mg capsule 0.4 mg PO DAILY Qty: 30 0RF amlodipine 10 mg tablet 10 mg PO DAILY Qty: 30 0RF Discharge Orders: Discharge ED (Routine); Ordered 03/23/25 Ordered By: Gigi Gibbs Discharge Diet: Advance as tolerated Discharge Activity: Resume usual activity Patient Instructions: Hypertension (ED) Print Language: Bol[place]ian Coding Level of Care Code ED Desulphuring Operator for Dimasg Madi
[2025-03-23 19:34] VITALS: BP 185/100; PULSE 88; RESP 16; O2SAT 95
[2025-03-23] MEDS: labetalol 5 mg/mL SDV 20mL 10 MG IVP (19:59)
[2025-03-23 20:18] LABS: Troponin 5 2HR 44.01 ng/L (0-15)
[2025-03-23 20:21] LABS: Troponin 5 2HR Delta -0.99 ABS# (0-10)
[2025-03-23 21:00] VITALS: BP 156/85; PULSE 84; O2SAT 97
== END 2025-03-23 21:01 | disposition home or self-care (01) ==
PROVIDERS: Emergency Provider Emergency Medicine
DX: I10 Essential (primary) hypertension (principal)
CPT/HCPCS: 36415; 71045; 80053; 83690; 84484; 85025; 85610; 93005; 96374; 99285; J3490

== ENCOUNTER → 2025-06-14 07:45 | Outpatient (BNVA) | payer MEDICAID, SELFPAY | PROVIDERS: PCP Family Medicine; Visit Provider Family Medicine | DX: Z12.5 Encounter for screening for malignant neoplasm of prostate (principal); Z11.4 Encounter for screening for human immunodeficiency virus [HIV]; Z11.59 Encounter for screening for other viral diseases; N18.9 Chronic kidney disease, unspecified; I10 Essential (primary) hypertension; N40.0 Benign prostatic hyperplasia without lower urinary tract symptoms; W29.3XXA Contact with powered garden and outdoor hand tools and machinery, initial encounter; E83.42 Hypomagnesemia; R79.89 Other specified abnormal findings of blood chemistry | CPT/HCPCS: 80053; 80061; 82043; 82306; 82607; 83735; 84443; 84550; 85025; 85651; 86038; 86140; 86803; 87806; G0103 ==

== ENCOUNTER → 2025-06-22 07:30 | Outpatient (BNVA) | payer MEDICAID, SELFPAY | PROVIDERS: PCP Family Medicine; Visit Provider Family Medicine | DX: N18.4 Chronic kidney disease, stage 4 (severe) (principal); R70.0 Elevated erythrocyte sedimentation rate; R79.82 Elevated C-reactive protein (CRP); M25.50 Pain in unspecified joint | CPT/HCPCS: 84550; 86021; 86036; 86431; 86618; 86666; 86757 ==

== ENCOUNTER 2025-08-10 14:24 | Outpatient (CLI) | payer MEDICAID, SELFPAY ==
[2025-08-10 17:40] LABS: Alanine Aminotransferase 17 U/L (0-41); Albumin Level 4.3 g/dL (3.5-5.2); Alkaline Phosphatase 134 U/L (40-130); Anion Gap 21.1 (5-19); Aspartate Amino Transferase 16 U/L (0-40); Blood Urea Nitrogen 38 mg/dL (6-20); Calcium 9.2 mg/dL (8.5-10.5); Carbon Dioxide 21 mmol/L (22-29); Chloride 103 mmol/L (98-107); Globulin 3.6 g/dL (1.3-4.6); Glucose 108 mg/dL (65-115); Osmolality Calculated 300 mOsm/kg (285-295); Potassium 5.1 mmol/L (3.5-5.1); Sodium 140 mmol/L (136-145); Total Protein 7.9 g/dL (6.6-8.7)
== END 2025-08-10 14:25 | disposition home or self-care (01) ==
LOC: LAB 14:25
PROVIDERS: PCP Family Medicine; Visit Provider Neurological Surgery
DX: R70.0 Elevated erythrocyte sedimentation rate (principal); M25.50 Pain in unspecified joint; R79.82 Elevated C-reactive protein (CRP); N18.4 Chronic kidney disease, stage 4 (severe)
CPT/HCPCS: 36415; 80053; 85651; 86140; 86812

== ENCOUNTER 2025-09-01 10:23 | Emergency (ER) | payer MEDICAID, SELFPAY ==
--- OUTSIDE RECORDS SUMMARY | 2024-04-16 01:20 | XMS_ITS ---
Author Organization [facility] Address [address] [place] [address] Care Team Providers Care Director Of Cardiology Name Role Phone TRICE CARDOZA Primary Care Provider Unavaila ble Trice Cardoza Unavailable [phone] Encounters Encounter Location Date Provider Diagnosis [facility] Office [facility] [address] [address] 04/16/2024 Trice Cardoza Plan Of Treatment No Information Progress Notes * Donnie GARCIADOB:[birth year] (60 yo M)Acc No.[id number]:04/16/2024 Progress Notes Patient: Hali rosalesDonnie noland Provider: Luke Cardoza APRN :1965 A ge:59 Y S ex:Male Date:04/16/2024 Address:[address] [place], [place] [id number] Pcp:TRICE CARDOZA Care Plan Details* * Electronic signature of Em Cardoza APN on 09/01/2025 at 10:34 AM 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
--- OUTSIDE RECORDS SUMMARY | 2025-09-01 10:34 | XMS_ITS | Patient Health Record ---
Author Organization [facility] Address [address] [place] [address] Care Team Providers Care Philosophy Instructor Name Role Phone TRICE CARDOZA Primary Care Provider Unavaila ble Trice Cardoza Unavailable [phone] Allergies Allergen (clinical drug ingredient) Drug/Non Drug Allergy documented on EMR Reaction Allergy Type Onset Date Status lisinopril Lisinopril Unknown Drug Allergy Activ e Results Component Value Reference Range Flag Notes Lipid Panel Reflex DLDL 8006 1, [id number] Reviewed date:10/15/2024 07:02:42 AM Interpretation: Performing Lab: Notes/Report: Diagnosis Description: Essential (primary) hypertension Trig 195 NA Classification Guidelines:Triglycerides Adults: >20yrs Desirable <150 Borderline High 150-199 High 200-499 Very high >=500 Children: Male 0-4 yr 22-99 5-9 yr 30-101 10-14 yr 32-125 15-19 yr 37-148 Children: Female 0-4 yr 34-112 5-9 yr 32-105 10-14 yr 37-131 15-19 yr 39-132 Chol 173 <=200 MG/DL HDL 41 30-72 MG/DL Reference Ranges:HDL Male: 5-9y 38-75 10-14y 37-74 15-19y 30-63 >=20y 40-59 Female: 5-9y 36-73 10-14y 37-70 15-19y 35-74 >=20y 40-59 CH/HDL 4.2 0.0-4.9 RATIO LDL 93 0-130 MG/DL LDL result is inaccurate , if Trig is >400 mg/dl. See DLDL result. Comprehensive Metabolic Pane l (CMP) 60468 Reviewed date:11/12/2024 03:57:26 PM Interpretation: Performing Lab: Notes/Report: Diagnosis Description: Essential (primary) hypertension Glucose Serum 102 71-110 MG/DL Testing p erformed at [facility], [address] [place] [address] Dr. Lucrecia Barriga, [place]IA [address]. CLIA ID#: [id number] BUN 45 7-21 MG/DL HI Creat 2.58 .57-1.17 MG/DL HI M-xfpbmx-q-benzoquinone imine (NAPQI) is a metabolite of acetaminophen, NAPQI concentrations of apparoximately 10 mg/L correlation to toxic levels of acetaminophen demonstrates a greater than or equil to 10% change in results. NAPQI concentrations greater than this may lead to falsely depressed results for patient samples. Use of this assay is not recommended for patients undergoing treatment with phenindione, due to the potential for falsely depressed results. GFR 27.8 NA Calculation pe rformed from GFR calculator provided by the [employer]. Glomerular Filtration rate(GRF) is the best overall index of kidney function. Normal GFR varies according to age,sex, body size, and declines with age. The [employer] recommends using the CKD-EPI Creatinine Equation(202) to estimate GFR. BUN/Creat Ratio 17.4 12.0-20.0 % Total Protein 7.5 5.8-8.0 G/DL Albumin 4.6 3.2-4.8 G/DL Globulin 3.0 2.3-3.5 G/DL Alb/Glob 1.5 0.8-2.2 Calcium 9.8 8.7-10.4 MG/DL Sodium 142 136-145 MMOL/L Potassium 4.7 3.5-5.1 MMOL/L Chloride 106 98-107 MMOL/L CO2 24.8 20.0-31.0 MMOL/L Anion Gap 16 5-15 HI Alk Phos 118 46-116 HI Bili Total .5 .3-1.2 MG/DL Use of this assay is not recommended for patients undergoing treatment with eltrombopag due to the potential for falsely elevated results. AST/SGOT 21 15-37 UNIT/L ALT/SGPT 16 12-78 UNIT/L Osmo Serum,Calculated 306 280-300 MOSM/KG HI Reason For Referral No Information Medications Medication SIG (Take, Route, Frequency, Duration) Notes Start Date End Date Status Toprol XL 25 MG Tablet Extended Release 24 Hour 1 tablet Orally Once a day; Duration: 30 days Active Tamsulosin HCl 0.4 MG Capsule 1 capsule Orally Once a day; Duration: 30 days Active Losartan Potassium 50 MG Tablet 1 tablet Orally Once a day; Duration: 30 days Active Gabapentin 100 MG Capsule 2 capsule Oral ly Once a day; Duration: 30 days 04/14/2025 Active hydroCHLOROthiazide 25 MG Tablet 1 tablet in the morning Orally Once a day; Duration: 30 days 04/14/2025 11/07/2025 Active amLODIPine Besylate 5 MG Tablet TAKE 1 TABLET BY MOUTH DAILY; Duration: 30 days Not-Taking Immunizations Vaccine Route Administration Date Status Comme nts Flucelvax Trivalent, Syringe 0.5 mL, PF Unknown 024 Refused Social History Tobacco Use: Social History Observation Description Date Details (start date - stop date) Never Smoker NA - NA Social History Depression Screening Social Info Question Answer Notes PHQ-9 Little interest or pleasure in doing thin gs Not at all Feeling down, depressed, or hopeless Not at all Trouble falling or staying asleep, or sleeping t oo much Not at all Feeling tired or having little energy Not at all Poor appetite or overeating Not at all Feeling bad about yourself, or that you are a failure, or have let yourself or your family down Not at all Trouble concentrating on thi ngs, such as reading the newspaper or watching television Not at all Moving or speaking so slowly that other people could have noticed. Or the opposite ? being so fidgety or restless that you have been moving around a lot more than usual Not at all Thoughts that you would be b jeannette off , or of hurting yourself in some way Not at all Total Score 0 Drug/Alcohol: Social Info Question Answer Notes AUDIT-C (Standard) Did you have a drink containing alcohol in the past year? Yes How often did you have six or more drinks on one occasion in the past year? 4 or more times a week (4 points) How many drinks did you have on a typical day when you were drinking in the past year? Declined to specify (0 point) How often did you have a drink containing alcohol in the past year? Daily or almost daily (4 points) Points 8 Interpretation Positive Tobacco Use: Social Info Question Answer Notes Tobacco Control (Standard) Tobacco use: Nonsmoker Section Notes: 03/18/24 PHQ9 03/18/24 PHQ9 03/18/24 PHQ9 03/18/24 PHQ9 04/14/25 PHQ9 Problems Problem Type SNOMED Code ICD Code Onset Dates Problem Status W/U Status Risk Notes Problem Hypertension (38854484) Hypertension (I10) Active confirmed Vital Signs Heart Rate 113 /min 04/14/2025 back pain Temperature 97.9 degrees Fahrenheit 04/14/2025 back pain Respiratory Rate 20 /min 04/14/2025 back pain Height-cm 182.88 cm 04/14/2025 back pain Oximetry 99 % 04/14/2025 back pain Blood pressure diastolic 84 mm Hg 04/14/2025 cary k pain Weight-kg 122.92 kg 04/14/2025 back pain Height 72 in 04/14/2025 back pain Blood pressure systolic 150 mm Hg 04/14/2025 back pain Weight 271 lbs 04/14/2025 back pain BMI 36.75 kg/m2 04/14/2025 back pain Encounters Encounter Location Date Provider Diagnosis [facility] [address] [address] 04/14/2025 Trice Batterton Hypertension I10 ; Bilateral lower extremity edema R60.0 ; Lumbar pain M54.50 ; Nocturia R35.1 ; Depression screen Z13.31 and Depression screening negative Z13.31 [facility] [address] [address] 10/14/2024 Trice Batterton Hypertension I10 ; Bilateral lower extremity edema R60.0 ; Encounter for immunization Z23 and Immunization not carried out because of patient refusal Z28.21 [facility] [address] [address] 05/11/2025 Trice Batterton Hypertension I10 and Bilateral lower extremity edema R60.0 [facility] [address] [address] 05/11/2025 Trice Batterton Nocturia R35.1 and Hypertension I10 Assessments Encounter Date Diagnosis (ICD Code) Assessment Notes Treatment Notes Treatment Clinical Notes Section Notes 05/11/2025 Hypertension (ICD-10 - I10) 05/11/2025 Nocturia (ICD-10 - R35.1) 10/14/2024 Bilateral lower extremity edema (ICD-10 - R60.0) 10/14/2024 Hypertension (ICD-10 - I10) Call clinic in 2 weeks with BP readings. 04/14/2025 Bilateral lower extremity edema (ICD-10 - R60.0) Depression screening performed using PHQ-9 Depression Scale with a score less than 5. No treatment plan indicated at this time, and screenings will be performed as indicated. 04/14/2025 Hypertension (ICD-10 - I10) Stable, recheck in 6 months. Depression screening performed using PHQ-9 Depression Scale with a score less than 5. No treatment plan indicated at this time, and screenings will be performed as indicated. 04/14/2025 Lumbar pain (ICD-10 - M54.50) He declines imaging today, if no improvement will need to reconsider. RTC with any concerns. Depression screening performed using PHQ-9 Depression Scale with a score less than 5. No treatment plan indicated at this time, and screenings will be performed as indicated. 05/11/2025 Bilateral lower extremity edema (ICD-10 - R60.0) 05/11/2025 Hypertension (ICD-10 - I10) 10/14/2024 Encounter for immunization (ICD-10 - Z23) 10/14/2024 Immunization not carried out because of patient refusal (ICD-10 - Z28.21) 04/14/2025 Nocturia (ICD-10 - R35.1) Depression screening performed using PHQ-9 Depression Scale with a score less than 5. No treatment plan indicated at this time, and screenings will be performed as indicated. 04/14/2025 Depression screen (ICD-10 - Z13.31) Depression screening performed using PHQ-9 Depression Scale with a score less than 5. No treatment plan indicated at this time, and screenings will be performed as indicated. 04/14/2025 Depression screening negative (ICD-10 - Z13.31) Depression screening performed using PHQ-9 Depression Scale with a score less than 5. No treatment plan indicated at this time, and screenings will be performed as indicated. 10/14/2024 Other Venipuncture performed. Right arm. One attempt. Pt tolerated well, bleeding controlled with light dressing.Belinda Mendoza LPN Plan Of Treatment No Information Medical (General) History Surgical History Surgery Date(Month/Year) right wrist surgery
--- OUTSIDE RECORDS SUMMARY | 2025-09-01 10:34 | XMS_ITS | Clinical Summary ---
Author Organization [facility] Address [address] [place] [address] Phone Care Team Providers Care Combat Systems Operator Name Role Phone Unavailable Primary Care Provider Unavailabl e Allergies No known active allergies Medications docusate sodium (COLACE) 100 mg capsule Take 1 Capsule (100 mg) by mouth 2 times daily as needed for Constipation . 09/30/2021 Active acetaminophen (TYLENOL) 325 mg tablet Take 2 Tablets (650 mg) by mouth every 6 hours as needed for Other (See Comment) (See admin instructions ). 09/30/2021 Active oxyCODONE (ROXICODONE) 5 mg tabletIndicatio ns:Contact with chainsaw as cause of accidental injury Take 1 Tablet (5 mg) by mouth every 4 hours as needed for Pain. 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 Gender Identity Not on file Sexual Orientation Not on file Last Filed Vital Signs Vital Sign Reading Time Taken Comments Blood Pressure 160/100 10/06/2021 10:04 AM OBSERVATION NURSE Pulse 97 10/06/2021 10:04 AM OBSERVATION NURSE Temperature 37.2 C (98.9 F) 09/30/2021 7:26 AM OBSERVATION NURSE Respiratory Rate 16 10/06/2021 10:04 AM OBSERVATION NURSE Oxygen Saturation 97% 10/06/2021 10:04 AM OBSERVATION NURSE Inhaled Oxygen Concentration - - Weight 107.5 kg (237 lb) 10/06/2021 10:04 AM OBSERVATION NURSE Height 182.9 cm (6') 10/06/2021 10:04 AM OBSERVATION NURSE Body Mass Index 32.14 10/06/2021 10:04 AM OBSERVATION NURSE Plan of Treatment Health Maintenance Due Date Last Done Comments DTAP/TDAP/TD VACCINES (1 - Tdap) 1985 HEPATITIS B VACCINES (1 of 3 - 19+ 3-dose series) 02/25 COLORECTAL SCREENING 2011 Colorectal Cancer Screening 2011 FIT-DNA Q 3 years 2011 FIT/FOBT Q 1 year 2011 Flex Sig/CT Colonography Q 5 years 2011 ZOSTER VACCINE (1 of 2) 2016 INFLUENZA VACCINE (#1) 2025 Advance Directives For more information, please contact: [phone] * Full Code (Latest Code Status on File) Date Activated Date Inactivated Comments 09/29/2021 12:34 AM 09/30/2021 2:54 PM
[2025-09-01 10:37] VITALS: BP 177/99; PULSE 88; RESP 18; TEMP 36.7; O2SAT 93; BMI 33.2
--- NOTE | 2025-09-01 10:43 | ECG_ITS ---
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 Measurements Intervals [place] Rate: 86 P: 29 MN: 230 QRS: 270 QRSD: 131 T: 72 QT: 385 QTc: 461 Interpretive Statements Sinus rhythm with a first-degree AV block sinus rhythm with a first-degree AV block ABNORMAL RHYTHM ECG Compared to ECG 03/23/2025 20:06:35 Sinus rhythm no longer present First degree AV block no longer present Right-axis deviation no longer present Right bundle-branch block no longer present Myocardial infarct finding no longer present Electronically Signed On 09-01-2025 23:45:45 POSITION CLASSIFICATION SPECIALIST by Emely Guardado M.D. [email or web address]
--- NOTE | 2025-09-01 10:43 | XR_ITS ---
WS: [id number] Portable AP upright chest, 09/01/2025 Clinical Data: Weakness Comparison: Portable chest, 03/23/2025 Findings: No nodules, masses or effusions are seen. The heart is enlarged. The pulmonary vascularity is not increased. No pneumonia or pneumothorax is seen. There is patchy opacity in the right lower lobe which is probably scarring. XR/XR chest 1V portable 11873 Impression: 1. Pleural thickening and scarring in right lower lobe. 2. Cardiomegaly.
--- NOTE | 2025-09-01 10:43 | W.ED.WEAKNES ---
HPI - Weakness General: Chief complaint: Weakness Stated complaint: Tired/lightheaded Time Seen by Provider: 09/01/25 10:42 History of Present Illness: 60-year-old man with a history of L. Terrance, OSIS, hypertension, chronic kidney disease, hypertension, and heart block who presents to the emergency room with malaise. He says he hurts on all of his joints. He was treated initially with doxycycline and then with a steroid and it improved some but over the last 3 days he has become much more fatigued. He has had bodyaches. No abdominal pain. No fevers. No nausea or vomiting. No altered mental status. No focal motor deficits. Related Data Previous Rx's ?Medication ?Instructions ?Recorded amlodipine 10 mg tablet 10 mg PO DAILY #90 tabs 06/22/25 clonidine HCl 0.1 mg tablet 0.1 mg PO BID #60 tabs 06/22/25 hydrocodone 10 mg-acetaminophen 1 tab PO Q8H PRN pain 30 days #90 06/22/25 325 mg tablet tabs losartan 50 mg tablet 50 mg PO DAILY #90 tabs 08/10/25 metoprolol succinate 25 mg 25 mg PO DAILY #90 tabs 08/10/25 tablet,extended release 24 hr (Toprol XL) prednisone 20 mg tablet See Rx Instructions .Route 08/10/25 .COMPLEX #20 tabs doxycycline monohydrate 100 mg 100 mg PO BID 10 days #20 caps 09/01/25 capsule prednisone 20 mg tablet 60 mg (3 x 20 mg) PO DAILY #20 tabs 09/01/25 Allergies Allergy/AdvReac Type Severity Reaction Status Date / Time No Known Allergies Allergy Verified 08/10/25 10:50 Review of Systems Narrative: Constitutional symptoms: Negative except as documented in HPI. Skin symptoms: Negative except as documented in HPI. Eye symptoms: Negative except as documented in HPI. ENMT symptoms: Negative except as documented in HPI. Respiratory symptoms: Negative except as documented in HPI. Cardiovascular symptoms: Negative except as documented in HPI. Gastrointestinal symptoms: Negative except as documented in HPI. Genitourinary symptoms: Negative except as documented in HPI. Musculoskeletal symptoms: Negative except as documented in HPI. Neurologic symptoms: Negative except as documented in HPI. Psychiatric symptoms: Negative except as documented in HPI. Endocrine symptoms: Negative except as documented in HPI. [facility] ED PFS: Medical History (Updated 09/01/25 @ 12:24 by Diana Yepez MD) Methamphetamine abuse Heart block Surgical History No pertinent past surgical history Social History Smoking and tobacco/nicotine status: current every day tobacco/nicotine user (chews tobacco) Physical Exam Narrative: EXAM NARRATIVE: General: Alert, no acute distress. Skin: Warm, dry. Head: Normocephalic, atraumatic. Neck: Supple, trachea midline. Eye: Extraocular movements are intact. Ears, nose, mouth and throat: mucosa moist. Cardiovascular: Regular, Normal peripheral perfusion. Respiratory: Lungs are clear to auscultation, respirations are non-labored, breath sounds are equal, Symmetrical chest wall expansion. Gastrointestinal: Soft, Nontender, Non distended Musculoskeletal: Normal ROM, no deformity. Neurological: Alert and oriented, No focal neurological deficit observed. Psychiatric: Cooperative, appropriate mood & affect. Course Vital Signs: Vital signs: Vital Signs Temperature 98.1 F 09/01/25 10:37 Pulse Rate 88 09/01/25 10:37 Respiratory Rate 18 09/01/25 10:37 Blood Pressure 177/99 09/01/25 10:53 Pulse Oximetry 97 09/01/25 11:38 Oxygen Delivery Me thod Room Air 09/01/25 11:38 MDM - Weakness Medical Decision Making Medical decision making: Patient's reason for coming to the emergency room Social determinants: Self-employed. I reviewed the patient's medical record. Reviewed the last couple of notes from clinic. He first took doxycycline and then steroids. 60-year-old man with a history of L. Terrance, OSIS, hypertension, chronic kidney disease, hypertension, and heart block I reviewed the patient's current home meds I reviewed prescription monitoring. Patient had a single prescription for hydrocodone in the last year. Alternate historians: None Differential diagnosis for patient presenting with generalized weakness and fatigue including but not limited to and based on the above HPI, review of systems and physical exam: Sepsis. Dehydration. Renal failure. Electrolyte abnormalities. Anemia. Congestive heart failure. Hypotension. Coronary syndrome. Hepatitis. Cirrhosis. Infections such as pneumonia, urinary tract infection, Tick bourne illness, Cellulitis, Viral infections including influenza and Covid-19. Workup: labwork and lab/exam driven imaging ordered to evaluate, rule in and rule out above pathologies. EKG: Time 1054. Rate 86. Normal sinus rhythm, No ST-T changes, no ectopy, first-degree AV block, This was reviewed and interpreted by myself the ER physician at 10:58 AM Lab Review: Laboratory results were reviewed and interpreted by myself the emergency room physician. No leukocytosis. No anemia. Stable chronic renal insufficiency with a BUN/creatinine of 38 and 2.3. ESR and CRP are elevated. Flu COVID and RSV are negative. Urine is negative for infection. Chest x-ray: Stable cardiomegaly and some scarring in the right base. No acute process. This was reviewed and interpreted by myself the emergency room physician. I also reviewed the radiology report. Assessment of risk: Level of risk: Low to moderate risk. Has several comorbidities Hospitalization considerations: No indication for hospitalization today. Lab work is fairly unremarkable and vitals have remained stable. Reexamination: Patient remained stable. No increased work of breathing. No altered mental status. No focal motor deficits. Consultation: I spoke with Dr. Conn who has been working this patient up for this problem. He recommends repeating steroids and antibiotics. Assessment and plan: Polymyalgia Malaise Chronic kidney disease -IV Solu-Medrol in the emergency room - Discharged home - Discussed plan with patient. Answered any questions. - Evaluation and treatment of this problem were appropriate in the emergency setting. Lab Data 09/01/25 10:55 09/01/25 10:55 Radiology Impressions Chest X-Ray 09/01/25 10:43 Impression: 1. Pleural thickening and scarring in right lower lobe. 2. Cardiomegaly. Laboratory Results WBC 5.35 10^3/uL (3.29-11.43) 09/01/25 10:55 RBC 4.31 10^6/uL (3.85-5.65) 09/01/25 10:55 Hgb 13.60 g/dL (11.27-16.99) 09/01/25 10:55 Hct 40.4 % (37-53) 09/01/25 10:55 MCV 93.7 fl (82-101) 09/01/25 10:55 MCH 31.6 pg (27-33) 09/01/25 10:55 MCHC 33.7 g/dL (30-55) 09/01/25 10:55 RDW 13.5 % (12.1-15.1) 09/01/25 10:55 Plt Count 264 10^3/cmm (157-399) 09/01/25 10:55 MPV 8.8 fL (7.4-10.4) 09/01/25 10:55 Neut % (Auto) 72.4 % 09/01/25 10:55 Lymph % (Auto) 14.6 % 09/01/25 10:55 Castro % (Auto) 7.5 % 09/01/25 10:55 Eos % (Auto) 4.5 % 09/01/25 10:55 Baso % (Auto) 0.6 % 09/01/25 10:55 Neut # (Auto) 3.88 10^3/uL (1.8-7.7) 09/01/25 10:55 Lymph # (Auto) 0.8 10^3/uL (0.8-4.8) 09/01/25 10:55 Castro # (Auto) 0.4 10^3/uL (0.2-0.9) 09/01/25 10:55 Eos # (Auto) 0.2 10^3/uL (0.0-0.8) 09/01/25 10:55 Baso # (Auto) 0.0 10^3/uL (0.0-0.1) 09/01/25 10:55 Nucleated RBC % (auto) 0 % 09/01/25 10:55 Nucleated RBCs # 0.0 /100WBC 09/01/25 10:55 ESR 47 mm/hr (0-10) H 09/01/25 10:55 Sodium 136 mmol/L (136-145) 09/01/25 10:55 Potassium 4.9 mmol/L (3.5-5.1) 09/01/25 10:55 Chloride 103 mmol/L (98-107) 09/01/25 10:55 Carbon Dioxide 22 mmol/L (22-29) 09/01/25 10:55 Anion Gap 15.9 (5-19) 09/01/25 10:55 BUN 38 mg/dL (6-20) H 09/01/25 10:55 Creatinine 2.3 mg/dL (0.7-1.2) H 09/01/25 10:55 GFR Calculation 29.2 mL/min (90-130) L 09/01/25 10:55 Glucose 131 mg/dL (65-115) H 09/01/25 10:55 Calculated Osmolality 293 mOsm/kg (285-295) 09/01/25 10:55 Lactic Acid 1.1 mmol/L (0.5-2.2) 09/01/25 10:55 Calcium 9.4 mg/dL (8.5-10.5) 09/01/25 10:55 Total Bilirubin 0.4 mg/dL (0.15-1.2) 09/01/25 10:55 AST 13 U/L (0-40) 09/01/25 10:55 ALT 21 U/L (0-41) 09/01/25 10:55 Alkaline Phosphatase 119 U/L (40-130) 09/01/25 10:55 Troponin T Baseline 46 ng/L (0-15) H 09/01/25 10:55 C-Reactive Protein 23.1 mg/L (0.0-4.9) H 09/01/25 10:55 Total Protein 6.9 g/dL (6.6-8.7) 09/01/25 10:55 Albumin 4.2 g/dL (3.5-5.2) 09/01/25 10:55 Globulin 2.7 g/dL (1.3-4.6) 09/01/25 10:55 Procalcitonin 0.14 ng/mL (0-0.5) 09/01/25 10:55 Urine Color Yellow (Yellow) 09/01/25 11:35 Urine Appearance Clear (CLEAR) 09/01/25 11:35 Urine pH 6.0 (5-7) 09/01/25 11:35 Ur Specific Superior 1.017 (1.005-1.030) 09/01/25 11:35 Urine Protein 2+ (Negative) A 09/01/25 11:35 Urine Glucose (UA) 2+ (Normal) H 09/01/25 11:35 Urine Ketones Negative (Negative) 09/01/25 11:35 Urine Blood Negative (Negative) 09/01/25 11:35 Urine Nitrate Negative (Negative) 09/01/25 11:35 Urine Bilirubin Negative (Negative) 09/01/25 11:35 Urine Urobilinogen 1.0 mg/dL (Negative) 09/01/25 11:35 Ur Leukocyte Esterase Negative (Negative) 09/01/25 11:35 Urine RBC 0-2 /hpf (0-2) 09/01/25 11:35 Urine WBC 0-5 /hpf (0-5) 09/01/25 11:35 Ur Squamous Epith Cells 0-5 /hpf (0-5) 09/01/25 11:35 Amorphous Sediment Not Reportable 09/01/25 11:35 Urine Bacteria None seen /hpf (NONE) 09/01/25 11:35 Hyaline Casts 2.46 /lpf 09/01/25 11:35 Influenza A (PCR) Negative (Negative) 09/01/25 11:00 Influenza Type B (PCR) Negative (Negative) 09/01/25 11:00 RSV (PCR) Negative (Negative) 09/01/25 11:00 SARS-CoV-2 (PCR) Negative (Negative) 09/01/25 11:00 All radiology interpretation(s) finalized by discharge Discharge Plan Discharge Patient Disposition: Home Clinical Impression: Malaise, Polyarthralgia, Stage 4 chronic kidney disease Condition: Stable Prescriptions: New prednisone 20 mg tablet 60 mg PO DAILY Qty: 20 0RF Rx Instructions: 3 tabs (60 mg) x 3 days. 2 tabs (40 mg) x 3 days. 1 tab (20 mg) x 3 days. 1/2 tab (10 mg) x 4 days doxycycline monohydrate 100 mg capsule 100 mg PO BID 10 Days Qty: 20 0RF No Action losartan 50 mg tablet 50 mg PO DAILY Qty: 90 3RF metoprolol succinate [Toprol XL] 25 mg tablet extended release 24 hr 25 mg PO DAILY Qty: 90 3RF prednisone 20 mg tablet See Rx Instructions .Route .COMPLEX Qty: 20 0RF Rx Instructions: 3 tabs x 3 days, then 2 tabs x 3 days, then 1 tab x 3 days, then 1/2 tab x 3 days. amlodipine 10 mg tablet 10 mg PO DAILY Qty: 90 2RF clonidine HCl 0.1 mg tablet 0.1 mg PO BID Qty: 60 5RF Rx Instructions: take if systolic blood pressure is greater than 180 or diastolic is greater than 100 hydrocodone-acetaminophen 10-325 mg tablet 1 tab PO Q8H PRN (Reason: pain) 30 Days Qty: 90 0RF Discharge Orders: Discharge ED (Routine); Ordered 09/01/25 Ordered By: Diana Yepez Referrals: Krunal Conn DO [Primary Care Provider, Family Practice] Discharge Diet: Usual diet Discharge Activity: Increase activity as tolerated Patient Instructions: Opioid Safety, Pain Management, Patient Portal & Geovani Instructions Activity Restrictions/Additional Instructions: Thank you for choosing [facility] for your healthcare needs today. You have been screened and evaluated and felt safe for discharge. Health conditions do change or evolve sometimes and as such it is important that you follow up with your Primary Doctor to be re checked, 3-5 days is a general good time frame for follow up. You are always welcome to return to the ED for re assessment if your symptoms are worsening or you have new concerns Print Language: Korean Coding Level of Care Code ED Fiber Picker for Lawrence Barraza
[2025-09-01 10:53] VITALS: BP 177/99; O2SAT 97
[2025-09-01 11:12] LABS: Hematocrit 40.4 % (37-53); Hemoglobin 13.60 g/dL (11.27-16.99); Mean Corpuscular HGB Conc 33.7 g/dL (30-55); Mean Corpuscular Hemoglobin 31.6 pg (27-33); Mean Corpuscular Volume 93.7 fl (82-101); Nucleated Red Blood Cells % 0 %; Platelet Count 264 10^3/cmm (157-399); Red Blood Count 4.31 10^6/uL (3.85-5.65); White Blood Count 5.35 10^3/uL (3.29-11.43)
[2025-09-01 11:30] LABS: Troponin(5th) Baseline 46 ng/L (0-15)
[2025-09-01 11:31] LABS: Alanine Aminotransferase 21 U/L (0-41); Albumin Level 4.2 g/dL (3.5-5.2); Alkaline Phosphatase 119 U/L (40-130); Anion Gap 15.9 (5-19); Aspartate Amino Transferase 13 U/L (0-40); Blood Urea Nitrogen 38 mg/dL (6-20); Calcium 9.4 mg/dL (8.5-10.5); Carbon Dioxide 22 mmol/L (22-29); Chloride 103 mmol/L (98-107); Creatinine Clr Calc Pharmacy 44.5167; Globulin 2.7 g/dL (1.3-4.6); Glucose 131 mg/dL (65-115); Osmolality Calculated 293 mOsm/kg (285-295); Potassium 4.9 mmol/L (3.5-5.1); Sodium 136 mmol/L (136-145); Total Protein 6.9 g/dL (6.6-8.7)
[2025-09-01 11:32] LABS: Lactic Sepsis W/Reflex 1.1 mmol/L (0.5-2.2)
[2025-09-01 11:38] VITALS: O2SAT 97
[2025-09-01 11:38] LABS: Procalcitonin 0.14 ng/mL (0-0.5)
[2025-09-01 11:46] LABS: Glucose Urine UA 2+ (Normal); Nitrate Urine Negative (Negative); Specific Gravity, Urine 1.017 (1.005-1.030)
[2025-09-01 11:48] LABS: Respiratory Syncytial Virus Ce NEGATIVE (Negative); SARS-CoV-2 PCR NEGATIVE (Negative)
[2025-09-01] MEDS: methylPREDNISolone sod succ 125 mg/2 mL INJ IVP (12:40)
--- NOTE | 2025-09-01 12:43 | ECG_ITS ---
[facility] Date: 2025-09-01 Pat Name: Donnie Nina Department: Room: Gender: Male Insole Bottom Filler: : 1965 Requested By: Diana Butler Order Number: [id number] Ying MD: Emely Guardado M.D. Measurements Intervals Martin Rate: 80 P: 48 OH: 246 QRS: 262 QRSD: 140 T: 82 QT: 410 QTc: 475 Interpretive Statements SINUS RHYTHM WITH FIRST DEGREE AV BLOCK RIGHT AXIS DEVIATION [QRS AXIS > 100] RIGHT BUNDLE BRANCH BLOCK [120+ ms QRS DURATION, UPRIGHT V1, 40+ ms S IN I/aVL/V4/V5/V6] PROBABLE SEPTAL MYOCARDIAL INFARCTION , OF INDETERMINATE AGE [35 ms Q WAVE IN V1/V2] Compared to ECG 09/01/2025 10:54:43 First degree AV block now present Right-axis deviation now present Right bundle-branch block now present Myocardial infarct finding now present Ventricular-paced complex(es) or rhythm no longer present Electronically Signed On 09-01-2025 23:52:02 ACCOUNT EXEC[employer]ES by Emely Guardado M.D. [email or web address]
== END 2025-09-01 13:00 | disposition home or self-care (01) ==
PROVIDERS: Emergency Provider Emergency Medicine; PCP Family Medicine
DX: R53.81 Other malaise (principal); M25.50 Pain in unspecified joint; Z11.52 Encounter for screening for COVID-19; I12.9 Hypertensive chronic kidney disease with stage 1 through stage 4 chronic kidney disease, or unspecified chronic kidney disease; N18.4 Chronic kidney disease, stage 4 (severe)
CPT/HCPCS: 36415; 71045; 80053; 81001; 83605; 84145; 84484; 85025; 85651; 86140; 87040; 87637; 93005; 96374; 99285; J2919

== ENCOUNTER 2025-09-09 16:52 | Outpatient (CLI) | payer MEDICAID, SELFPAY ==
--- NOTE | 2025-09-09 17:15 | CTR_ITS ---
PROCEDURE INFORMATION: Exam: CT Chest Without Contrast; Diagnostic Exam date and time: 09/09/2025 5:02 PM Age: 60 years old Clinical indication: Shortness of breath, lethargic, hasn't felt good in a long while. Nonspecific mesenteric lymphadenitis; Additional info: I88.0 - nonspecific mesenteric lymphadenitis, TECHNIQUE: Imaging protocol: Diagnostic computed tomography of the chest without contrast. Radiation optimization: All CT scans at this facility use at least one of these dose optimization techniques: automated exposure control; mA and/or kV adjustment per patient size (includes targeted exams where dose is matched to clinical indication); or iterative reconstruction. COMPARISON: CR XR chest 1V portable [id number] 09/01/2025 10:45 AM RADIATION DOSE METRICS: Total DLP (mGy-cm): 1507.88 FINDINGS: Lungs: Trace right pleural fluid with pleural thickening and atelectasis in the dependent right lung base. Pleural spaces: No pneumothorax. Heart: No cardiomegaly. No pericardial effusion. Coronary arteries: Moderate atherosclerotic calcification of the coronary arteries. Lymph nodes: Few small nonspecific mediastinal lymph nodes, which are not pathologically enlarged by size criteria. Vasculature: Limited assessment of the vasculature without contrast. No aortic aneurysm. Bones/joints: Chronic healed right mid clavicular fracture. The thoracic spine demonstrates moderate degenerative changes at multiple levels. Contiguous fusion of multiple anterior osteophytes in the thoracic spine compatible with diffuse idiopathic skeletal hyperostosis. Age indeterminate mild anterior compression deformity in the T8 vertebral body with some increased mineralization of the vertebral body superiorly. PROCEDURE INFORMATION: Exam: CT Abdomen And Pelvis Without Contrast Exam date and time: 09/09/2025 5:02 PM Age: 60 years old Clinical indication: Shortness of breath, lethargic, hasn't felt good in a long while. Nonspecific mesenteric lymphadenitis; Additional info: I88.0 - nonspecific mesenteric lymphadenitis, TECHNIQUE: Imaging protocol: Computed tomography of the abdomen and pelvis without contrast. Radiation optimization: All CT scans at this facility use at least one of these dose optimization techniques: automated exposure control; mA and/or kV adjustment per patient size (includes targeted exams where dose is matched to clinical indication); or iterative reconstruction. COMPARISON: CT abdomen pelvis w con* [id number] 09/28/2021 5:30 PM RADIATION DOSE METRICS: Total DLP (mGy-cm): 1507.88 FINDINGS: Liver: Small coarse calcification in the liver, which could reflect a granuloma. Gallbladder and biliary ducts: Multiple calcified gallstones are present. No biliary ductal dilatation. Pancreas: The pancreas appears unremarkable. Spleen: The spleen appears unremarkable. Adrenal glands: The adrenal glands are unremarkable. Kidneys and ureters: The kidneys appear unremarkable. No mineralized stones or hydronephrosis. Stomach and bowel: There is no evidence of intestinal perforation or obstruction. There is ingested material in the stomach. Appendix: The appendix appears unremarkable. Intraperitoneal space: Mild nonspecific haziness in the fat at the root of the mesentery, which appears less pronounced than the prior exam. No free air. Vasculature: Limited assessment of the vasculature without contrast. No aortic aneurysm. Lymph nodes: No pathologically enlarged lymph nodes demonstrated on this noncontrast CT. Urinary bladder: The bladder appears unremarkable. Reproductive: Visualized portions of the male reproductive tract are unremarkable, though routine CT is limited in this regard. Bones/joints: The lumbar spine demonstrates moderate degenerative changes at multiple levels. Soft tissues: Small fat containing umbilical hernia. Some fatty atrophy of the gluteal musculature. CT/[place] [id number] IMPRESSION: 1. Trace right pleural fluid with pleural thickening and atelectasis in the dependent right lung base. 2. Age indeterminate mild anterior compression deformity in the T8 vertebral body with some increased mineralization of the vertebral body. Correlate with symptoms. If symptoms warrant, MRI could be performed to assess for marrow edema to definitively determine the chronicity of this finding. IMPRESSION: 1. Mild nonspecific haziness in the fat at the root of the mesentery, which appears less pronounced than the prior exam. Some considerations would include mesenteric panniculitis, sclerosing mesenteritis, and edema related to systemic causes and reactive edema secondary to subtle infectious or inflammatory bowel pathology. No obstruction. Unremarkable appendix. 2. Cholelithiasis. 3. Other incidental and nonemergent findings are discussed above.
== END 2025-09-09 16:53 | disposition home or self-care (01) ==
LOC: RAD 16:53
PROVIDERS: PCP Family Medicine; Visit Provider Family Medicine
DX: I88.0 Nonspecific mesenteric lymphadenitis (principal); J92.9 Pleural plaque without asbestos; R70.0 Elevated erythrocyte sedimentation rate; R79.82 Elevated C-reactive protein (CRP); R53.81 Other malaise; K80.20 Calculus of gallbladder without cholecystitis without obstruction; K56.609 Unspecified intestinal obstruction, unspecified as to partial versus complete obstruction; R93.5 Abnormal findings on diagnostic imaging of other abdominal regions, including retroperitoneum; R93.7 Abnormal findings on diagnostic imaging of other parts of musculoskeletal system; Z87.310 Personal history of (healed) osteoporosis fracture; M80.08XA Age-related osteoporosis with current pathological fracture, vertebra(e), initial encounter for fracture
CPT/HCPCS: 71250; 74176

== ENCOUNTER 2025-10-14 08:21 | Outpatient (CLI) | payer MEDICAID, SELFPAY ==
--- NOTE | 2025-10-14 | ECG_ITS ---
[facility] Test Date: 2025-10-14 Pat Name: Donnie Nina Department: Room: Gender: Male Early Intervention Specialist: : 1965 Requested By: Krunal Lang Order Number: [id number] Ying MD: JAMES GRAHAM Interpretive Statements Lung unchanged pre/post procedure; Intraprocedure shortess of breath; Symptoms resoled by discharge NOTE: Please note that this is the electrocardiogram portion of the Lexiscan/Sestamibi stress test. The perfusion scan will be documented separately. DATA: Baseline heart rate was 74 beats per minute. Baseline blood pressure was 160/94 millimeters of mercury. Target heart rate was 161. Maximum heart rate achieved was 88. which was 54% of the predicted target heart rate. Maximum blood pressure was 163/94 millimeters of mercury. The reason for ending the test was completion of the protocol. The patient did not experience any symptoms. ELECTROCARDIOGRAM: BASELINE: Sinus rhythm. Normal axis. Right bundle branch block otherwise, no ST-T changes suggestive of ischemia noted. No arrhythmia noted. EXERCISE: After Lexiscan injection, no ST-T changes suggestive of ischemic noted. No arrhythmia noted. CONCLUSION: Please note due to baseline abnormality of the EKG specificity and sensitivity of the EKG portion of LexiScan MIBI stress test will be low 1. EKG not suggestive of ischemia 2. Lexiscan injection unremarkable. 3. Perfusion scan will be documented separately. Electronically Signed On 10-28-2025 18:14:15 CARD PLACER by JAMES GRAHAM [email or web address]
[2025-10-14 08:37] VITALS: BMI 38.6
--- NOTE | 2025-10-14 08:39 | NMCV_ITS ---
NM haley perf SPECT r/s* [id number] Donnie Nina Age: 60 Gender: M : 1965 Exam Date: 10/14/2025 09:14 Ordering Phys: Krunal Conn DO Technologist: ROSMERY Sanz Exam Location: [facility] [address] Indications: cp STRESS TEST Please see separate stress test report in [facility] for full findings IMAGE PROTOCOL Rest/Stress 1 Lexiscan Day Radiopharmaceutical Dose (mCi) Administration Site Administered by Rest: Tc-99m 10.6 IV Deloris Garcia, STAKING ENGINEER Sestamibi Stress:Tc-99m 33 IV Deloris Radha, STAKING ENGINEER Sestamibi Rest: 14-Oct-2025 60 Discovery 630 Stress: 14-Oct-2025 30 Discovery 630 Images obtained in supine and prone position. 0.4mg Lexiscan. SPECT RESULTS Technical Quality: Good Raw Data Analysis: Normal Image Corrections: No attenuation or motion correction applied Summed Stress Score: 0 Summed Rest Score: 0 Summed Difference Score: 0 PERFUSION FINDINGS Medium size area of fixed perfusion defect noted in basal to distal inferior wall siggestive of old myocardial infarction vs scarring without ishemia FUNCTIONAL RESULTS (calculated via Gated SPECT) Stress Image LV EF (%): 59 Stress EDV (mL):148 TID: 1.06 Stress ESV (mL):60 FUNCTIONAL FINDINGS: There is normal left ventricular systolic function. IMPRESSIONS Medium size area of fixed perfusion defect noted in basal to distal inferior wall siggestive of old myocardial infarction vs scarring without ishemia Jhonny Slaughter MD (Electronically Signed) Final Date: 14 October 2025 12:28 S
[2025-10-14 10:26] VITALS: BP 147/71; PULSE 83
== END 2025-10-14 08:22 | disposition home or self-care (01) ==
LOC: CDL 08:23
PROVIDERS: PCP Family Medicine; Visit Provider Family Medicine
DX: I10 Essential (primary) hypertension (principal); I45.9 Conduction disorder, unspecified; Z01.810 Encounter for preprocedural cardiovascular examination; R93.1 Abnormal findings on diagnostic imaging of heart and coronary circulation
CPT/HCPCS: 36415; 78452; 93017; 96374; A9500; J2785